=== PATIENT | female | born 1930 | race Caucasian/White ===

== ENCOUNTER → 2017-03-06 | Outpatient (CLI) | payer MEDICARE ==
[~2017-03-06] MED LIST: CALC500T36 PO; CENTTAB47 PO; FOSA70TA PO; LIPI10TA PO; VITATAB11 PO
[2017-03-06 12:16] LABS: MEAN CORPUSCULAR HEMOGLOBIN 33.4 pg (27.0-33.0); MEAN CORPUSCULAR HGB CONC 34.4 g/dl (32.0-36.5); MEAN CORPUSCULAR VOLUME 97.1 fl (80.0-96.0); RED CELL DISTRIBUTION WIDTH 12.5 % (11.5-14.5); WHITE BLOOD COUNT 7.1 K/mm3 (4.0-10.0)
[2017-03-06 12:22] LABS: INR 0.93
--- NOTE | 2017-03-06 12:44 | REP ---
REASON: Preoperative assessment. COMPARISON: 08/18/2014 Cardiomediastinal silhouette is unchanged. The heart is not enlarged. There is interstitial fibrotic change status quo. No acute patchy parenchymal opacities or pleural effusions have developed. There is no change in the osseous structures. IMPRESSION: Stable appearing chronic changes. Signed by Jeremiah Hair DO 03/06/2017 02:17 P
[2017-03-06 12:46] LABS: ALBUMIN 4.2 GM/DL (3.2-5.2); ALBUMIN/GLOBULIN RATIO 1.31 (1.00-1.93); ALKALINE PHOSPHATASE 103 U/L (45-117); ALT/SGPT 25 U/L (12-78); ANION GAP 7 MEQ/L (8-16); AST/SGOT 16 U/L (15-37); BILIRUBIN,TOTAL 0.4 MG/DL (0.2-1.0); BLOOD UREA NITROGEN 24 MG/DL (7-18); CALCIUM LEVEL 8.9 MG/DL (8.8-10.2); CARBON DIOXIDE LEVEL 26 MEQ/L (21-32); CHLORIDE LEVEL 106 MEQ/L (98-107); CREATININE FOR GFR 0.78 MG/DL (0.55-1.02); GLOMERULAR FILTRATION RATE > 60.0 (>32); GLUCOSE, FASTING 85 MG/DL (83-110); POTASSIUM SERUM 4.6 MEQ/L (3.5-5.1); SODIUM LEVEL 139 MEQ/L (136-145); TOTAL PROTEIN 7.4 GM/DL (6.4-8.2)
--- NOTE | 2017-03-07 00:43 | ECGEPIP ---
Stationary ECG Study [facility] Test Date: 2017-03-06 Pat Name: Lala CRUM Department: Room: - Gender: F Program Management Professional: SERVANDO : 1930 Requested By: Jostin Shaw Order Number: [id number] Reading MD: Blas Narvaez Measurements Intervals [place] Rate: 72 P: 73 NV: 167 QRS: -2 QRSD: 70 T: 29 QT: 347 QTc: 382 Interpretive Statements SINUS RHYTHM POSSIBLE LEFT ATRIAL ENLARGEMENT POSSIBLE ANTERIOR MYOCARDIAL INFARCTION, PROBABLY OLD VERSUS POOR r-WAVE PROGRESSION INFERIOR MYOCARDIAL INFARCTION, PROBABLY OLD LOW-VOLTAGE QRS COMPLEXES IN THE LIMB LEADS NO PRIOR TRACING IN THE SYSTEM Electronically Signed On 03-07-2017 0:43:21 EDT by Blas Narvaez
== END ==
LOC: M ADMPAT 10:19
PROVIDERS: ATTEND Orthopaedic Surgery
DX: Z01.818 Encounter for other preprocedural examination (principal); M16.12 Unilateral primary osteoarthritis, left hip; Z79.899 Other long term (current) drug therapy

== ENCOUNTER 2017-03-20 08:45 | Inpatient (IN) | payer MEDICARE ==
[2017-03-06 11:39] VITALS: BP 166/86
--- NOTE | 2017-03-13 13:24 | HPE ---
DATE OF ANTICIPATED ADMISSION: 03/20/2017 ATTENDING PHYSICIAN: Jostin Roa MD CHIEF COMPLAINT: Left hip pain and stiffness. HISTORY: The patient is a pleasant 86-year-old female presenting with progressively worsening left hip pain and stiffness. She has failed to improve with conservative measures, so she has elected for a left total hip arthroplasty with Dr. Roa. Pain continues with weightbearing activities and activities of daily living. Medical optimization pending with Dr. Chang and is not present for review today. CURRENT MEDICATIONS: - Mobic 15 mg daily ALLERGIES: No known drug allergies. CURRENT MEDICAL CONDITIONS: Osteoarthritis. SURGICAL HISTORY: section, right lower leg surgery. SOCIAL HISTORY: The patient has never smoked. Rare alcohol use. REVIEW OF SYSTEMS: The patient denies fevers, chills, nausea, vomiting, or diarrhea. She denies chest pain, shortness of breath, headache, or cough. No recent upper respiratory or urinary tract infection symptoms. The patient continues to have left hip pain with weightbearing activities and activities of daily living. EXAMINATION: A well nourished, well developed female, in no apparent distress. Neck supple without lymphadenopathy or jugular venous distention (JVD). Heart: Regular rate and rhythm. Lungs: Clear to auscultation bilaterally. Abdomen: Bowel sounds are present. Abdomen is soft and nontender to palpation. Musculoskeletal: The left hip revealed no gross abnormalities. Skin is intact. The patient does have limited extension, internal and external rotation at the hip. She does have normal strength of the left lower extremity. Hip irritability was elicited with range of motion. She does have tenderness to palpation along the groin. Her calf is soft, nontender to palpation, with no palpable cords noted. Distally, she is neurovascularly intact. VITAL SIGNS: Height 65 inches. Weight 148 pounds. Temperature 97.6. Blood pressure 156/84. Heart rate 88. Respirations 20. LABORATORY DATA: Chest x-ray: Stable-appearing chronic changes. Electrocardiogram (EKG): Sinus rhythm. Possible left atrial enlargement. Possible anterior myocardial infarction, probably old versus poor R wave progression. Inferior myocardial infarction, probably old. Low voltage QRS complexes in the limb leads. Urinalysis: Positive for 2+ leukocyte esterase, 4 WBCs, and 1+ bacteria. Urine culture positive for Escherichia (E.) coli. Nasal and sinus culture reveals normal marley. Comprehensive metabolic profile: Fasting glucose 85, BUN elevated at 24, creatinine for GFR 0.78. GFR greater than 60. Sodium 139, potassium 4.6, chloride 106, carbon dioxide 26, anion gap decreased at 7, calcium 8.9, AST 16, ALT 25, alkaline phosphatase 103, total bilirubin 0.4 , total protein 7.4, albumin 4.2, albumin globulin ratio 1.31. Complete blood count: WBC is 7.1, RBC is 4.57, hemoglobin 15.3, hematocrit 44.3 , platelets 245. Erythrocyte sedimentation rate 6. Prothrombin time 12.6, INR 0.93. ASSESSMENT/PLAN: 1. Symptomatic left hip osteoarthritis with x-rays notable for end-stage degenerative changes. The patient has elected for a left total hip arthroplasty with Dr. Roa. Medical optimization pending with Dr. Chang. 2. Urinary tract infection. Treated with Bactrim DS twice daily for 10 days. MTDD
[~2017-03-20] VITALS: Ht 165.1 cm; Wt 68.0 kg
[~2017-03-20 08:45] MED LIST changes: +**UNRESOLVED NON-FORMULARY MED ORDER XX SCH
[2017-03-20] MEDS ORDERED: CelecoXIB (CeleBREX) 100 MG CAP PO ONE ×2 (09:00→21:00)
[2017-03-20] MEDS ORDERED: LR 1,000 ML IV SCH ×2 (09:00→16:30)
[2017-03-20] MEDS ORDERED: PERCOCET 5MG/325MG TAB PO ONE (09:30)
[2017-03-20] MEDS ORDERED: ceFAZolin 1GM INJ (J0690) As Ordered ONE (10:22)
[2017-03-20] MEDS ORDERED: BUPIVACAINE/EPIN 0.25% 30 ML VIAL As Ordered ONE (10:22)
[2017-03-20] MEDS ORDERED: TRANEXAMIC ACID 100 MG/ML 10ML VIAL As Ordered ONE (10:23)
[2017-03-20] MEDS ORDERED: EPINEPHrine INJ 1 MG/ML 1ML AMP As Ordered ONE (10:24)
[2017-03-20] MEDS ORDERED: fentaNYL 100 MCG/2 ML INJECTION (J3010) As Ordered ONE (13:59)
[2017-03-20] MEDS ORDERED: MIDAZOLAM INJ 2 MG/2 ML VIAL (J2250) As Ordered ONE (13:59)
[2017-03-20] MEDS ORDERED: ONDANSETRON 4MG/2ML VIAL (J2405) As Ordered ONE (14:00)
[2017-03-20] MEDS ORDERED: ePHEDrine SULFATE 25 MG/5 ML(5MG/ML) SYRINGE As Ordered ONE ×2 (14:00→14:07)
[2017-03-20] MEDS ORDERED: LIDOCAINE 2% INJ 100 MG/5 ML SDV (FOR ANES.) As Ordered ONE (14:00)
[2017-03-20] MEDS ORDERED: PROPOFOL 200 MG/20 ML VIAL As Ordered ONE ×2 (14:00→15:11)
[2017-03-20] MEDS ORDERED: ACETAMINOPHEN TAB 650MG DOSE (2X325MG) PO PRN (16:15)
[2017-03-20] MEDS ORDERED: ONDANSETRON 4MG/2ML VIAL (J2405) IV PRN ×2 (16:15→16:30)
[2017-03-20] MEDS ORDERED: FLEET ENEMA PR PRN (16:30)
[2017-03-20] MEDS ORDERED: MORPHINE 2 MG/ML 1ML SYRINGE IV PRN (16:30)
[2017-03-20] MEDS ORDERED: PERCOCET 5MG/325MG TAB PO PRN (16:30)
[2017-03-20] MEDS ORDERED: CYCLOBENZAPRINE 5MG TABLET PO PRN (16:30)
[2017-03-20] MEDS ORDERED: fentaNYL 100 MCG/2 ML INJECTION (J3010) IV PRN (16:30)
[2017-03-20] MEDS ORDERED: HYDROmorphone HCL 1 MG/ML SYRINGE (J1170) IV PRN (16:30)
[2017-03-20] MEDS ORDERED: WARFARIN SOD 1 MG TAB PO ONE (17:00)
[2017-03-20] MEDS ORDERED: WARFARIN SOD 2.5 MG TAB PO ONE (17:00)
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
[2017-03-20 17:30] VITALS: BP 137/96
[2017-03-20] MEDS: PERCOCET 5MG/325MG TAB PO PRN (17:53)
[2017-03-20] MEDS: D5W/LR 1,000 ML IV SCH (17:54)
[2017-03-20 18:00] VITALS: BP 140/72
[2017-03-20 19:00] VITALS: BP 133/57
[2017-03-20 20:00] VITALS: BP 107/62
[2017-03-20 21:00] VITALS: BP 139/67
[2017-03-20] MEDS: ASCORBIC ACID 500 MG TAB PO SCH (21:41)
[2017-03-20 22:00] VITALS: BP 134/78
[2017-03-21] MEDS: RAMELTEON 8 MG TAB (ROZEREM) PO SCH ×2 (00:50→21:20)
[2017-03-21 02:00] VITALS: BP 128/83
[2017-03-21] MEDS: D5W/LR 1,000 ML IV SCH (03:22)
[2017-03-21] MEDS: PERCOCET 5MG/325MG TAB PO PRN ×4 (03:38→21:20)
[2017-03-21 06:00] VITALS: BP 124/57
[2017-03-21 06:55] LABS: INR 1.3; MEAN CORPUSCULAR HEMOGLOBIN 33.1 pg (27.0-33.0); MEAN CORPUSCULAR HGB CONC 34.2 g/dl (32.0-36.5); MEAN CORPUSCULAR VOLUME 96.8 fl (80.0-96.0); RED CELL DISTRIBUTION WIDTH 12.6 % (11.5-14.5); WHITE BLOOD COUNT 12.6 K/mm3 (4.0-10.0)
[2017-03-21 07:49] LABS: ANION GAP 9 MEQ/L (8-16); BLOOD UREA NITROGEN 21 MG/DL (7-18); CALCIUM LEVEL 8.2 MG/DL (8.8-10.2); CARBON DIOXIDE LEVEL 23 MEQ/L (21-32); CHLORIDE LEVEL 108 MEQ/L (98-107); CREATININE FOR GFR 0.75 MG/DL (0.55-1.02); GLOMERULAR FILTRATION RATE > 60.0 (>32); GLUCOSE, FASTING 129 MG/DL (83-110); MAGNESIUM LEVEL 1.9 MG/DL (1.8-2.4); POTASSIUM SERUM 4.5 MEQ/L (3.5-5.1); SODIUM LEVEL 140 MEQ/L (136-145)
[2017-03-21] MEDS: FLUTICASONE PROP 0.05% NASAL SPRAY 16 GM (FLONASE) SCH (09:00)
[2017-03-21] MEDS: MIRALAX *UNIT DOSE* 17GM PACKET PO SCH (09:00)
[2017-03-21 10:00] VITALS: BP 129/59
--- NOTE | 2017-03-21 10:29 | REP ---
Clinical: Status post arthroplasty. Technique: AP and cross-table lateral views. Findings: The patient is status post left hip replacement with normal positioning and appearance to the femoral and acetabular components. Overlying postsurgical changes appreciated. Impression: Satisfactory left hip replacement radiographs. Signed by Boom Tobar MD 03/21/2017 10:20 A
[2017-03-21] MEDS: SENOKOT S TAB PO SCH ×2 (10:39→21:21)
[2017-03-21] MEDS: ASCORBIC ACID 500 MG TAB PO SCH ×2 (10:41→21:21)
[2017-03-21] MEDS: MOM 30ML SUSPENSION UDC PO SCH (10:45)
[2017-03-21] MEDS ORDERED: SENN1TAB2 PO (11:35)
[2017-03-21 14:00] VITALS: BP 121/59
--- NOTE | 2017-03-21 14:11 | IPN ---
DATE: 03/21/2017 The patient seen and examined. No acute events overnight. Denies any chest pain, pressure or discomfort. Reporting left hip pain within tolerable limits. Denies any fever or chills. VITAL SIGNS: Temperature 97.7, pulse 89, respirations 18, blood pressure 129/59, pulse oximetry 94% on room air. LABORATORY: WBC 12.6, hemoglobin and hematocrit (H and H) 12.6 over 36.7, and platelets 164. Chemistries: Sodium 140, potassium 4.5, chloride 108, bicarbonate 23, BUN 21, creatinine 0.75. PHYSICAL EXAMINATION: GENERAL: Patient alert and oriented times three. No acute distress. HEENT: Normocephalic, atraumatic. PULMONARY: Bilateral clear. NECK: Supple. CARDIAC: Regular rate and rhythm. Normal S1, S2. ABDOMEN: Soft. Nontender. Positive bowel sounds. EXTREMITIES: No edema bilateral lower extremities. Able to move bilateral lower extremities. Surgical site clean, dry and intact. ASSESSMENT AND PLAN: This is an 86-year-old female patient with no significant past medical history other than osteoarthritis who is on Lipitor and lives alone at home admitted under the orthopedic service status post left hip replacement done by Dr. Roa. Medicine consulted for medical management. PROBLEMS: 1. Osteoarthritis. Anticoagulation, pain regimen, activity status and physical therapy as per Dr. Roa. The patient is on Coumadin for anticoagulation. Followup INR. Physical medicine and rehabilitation (PM and R) screening. 2. Dyslipidemia. Continue statin. 3. History of urinary tract infection (UTI). Currently asymptomatic. Will continue to follow. 4. Deep vein thrombosis (DVT) prophylaxis. As per primary team. On Coumadin. DISPOSITION: Pending PM and R and physical therapy.
--- NOTE | 2017-03-21 15:22 | RO ---
DATE OF PROCEDURE: 03/20/2017 PREOPERATIVE DIAGNOSIS: Left hip osteoarthritis. POSTOPERATIVE DIAGNOSIS: Left hip osteoarthritis. PROCEDURE PERFORMED: Left total hip replacement. SURGEON: Jostin Roa MD ASSEM[employer]: Helene Lopes PA-C ESTIMATED BLOOD LOSS: Less than 300 mL, replaced with crystalloid. COMPLICATIONS: None. INDICATIONS; Progressive discomfort and deformity of the left hip. The patient has elective for operative intervention. Consent reviewed in detail, including a leticia discussion of pathology involved, procedure proposed, alternatives, such as doing nothing, risks, including but not limited to pain, failure, infection, bleeding, blood loss, incomplete relief of symptoms need for additional surgery, dislocation, blood clots and other issues. The patient agreed to proceed with surgery. COMPONENTS USED: Include DePuy [place] system, size 8 femoral component, +5 neck length, 36 mm metal head, 52 mm acetabulum, 36 mm acetabular liner, [place] hole eliminator. OPERATIVE REPORT Identified in the holding area, site and side verified, brought to the operating room and spinal anesthesia was administered and she was positioned for exposure of the left hip in the lateral decubitus position for the modified Hardinge approach for the left hip. Next, once I and the drive tester were comfortable, she was sterilely prepped and draped in the usual fashion. Time-out was accomplished. Incision was outlined with a marking pen, infiltrated with 0.25% Marcaine with epinephrine, made with a 10 blade knife, developed down through skin and subcuticular tissues to the lateral fascia. I was standing on the patient's posterior, Ms. Lopes on the patient's anterior. Lateral fascia was opened sharply using Ambriz scissor and exposing the abductor mechanism, into the 2:00 o'clock position and the femoral neck and capsule were exposed. The capsule was released. Cuff of tissue was left on the greater trochanter at its anterior aspect for later repair. The abductor mechanism was released anteriorly, developed inferiorly releasing the proximal portion of the vastus lateralis. Next, once this was accomplished, the reflected head of the vastus was released at the acetabulum. The hip was dislocated with the physician lead recreation assistant, Ms. Lopes, applying external rotation and traction and I utilized the dislocation hook. Next, the hip was positioned in the bag. The proximal femur was exposed. The canal was opened using the canal opening reamer, followed by the canal finding reamer, followed by the lateralizing reamer. We then reamed through a size eight conical reamer. Next, tem plate was installed and the oscillating saw was utilized to make the femoral neck cut approximately one-half fingerbreadth from the lesser trochanter. Next, the box broach was utilized in the proximal cancellus bone. Next, broach from a size 3 through a size 8 was utilized. Size 8 fit appropriately as templated. Next, the hip was then we repositioned with the anterior and posterior retractors exposing the acetabulum. A large posterior, inferior osteophyte was appreciated as on the x-rays. Next, Bovie cautery was utilized to remove soft tissue from the acetabulum and the remove the acetabular labrum. Next, serial reaming was accomplished using the hemispherical reamers beginning with a size 46 and working through a size 51. We trialed for a size 52, which seemed to fit appropriately and securely with good rim fit. Next, the non trial acetabulum was then implanted using a targeting device and a mallet. Next, apex hole eliminator was installed after we verified the acetabulum. Acetabular component was in the floor of the acetabulum. Next, the non trial 36 mm neutral liner was installed using a nylon impactor. We verified the liner was secure. Next, attention was turned back to the femoral components. The trial size 8 femoral component was implanted and tamped into place. I then trialed a +1.5, followed by a +5 neck length high offset, normal off set. Normal off set fit appropriately with a +5 neck length. Next, the trial components were then removed and non trial stem was implanted. Next, non trial hip ball size 36 mm was installed and tamped into place and the hip was reduced. The hip was placed through range of motion to verify good alignment. Of note, prior to implanting the non trial stem, I did remove the posterior and inferior osteophytes using curette osteotome. Next, the hip was stable with external rotation. Next, irrigation was accomplished, as well as irrigation TXA solution and allowed to stand for 1 minute. Next, once this was accomplished, the capsule and medius tissues were reapproximated using interrupted stitch. The medius and abductor mechanisms were reapproximated greater trochanter with the cuff of tissue on the greater trochanter. Next, the lateral fascia was reapproximated with interrupted #1 stitch, as well as Stratafix running stitch. Next, we again irrigated. The Alvina's fascia was reapproximated with interrupted stitch, deep dermis with interrupted stitch. Next, Pernio dressing was applied. Next, once this was accomplished, the drapes were removed, pillow placed between the knees. The patient was then moved the hospital bed in good. Leg lengths were appreciated to be equal. Moved to the recovery room in good condition. Physician lead recreation assistant Moses was present and participated in the entirety of the case, as did Za. For further details, please refer to the medical record. MELCHOR
[2017-03-21] MEDS ORDERED: WARFARIN SOD 5 MG TAB PO ONE (17:00)
[2017-03-21 22:00] VITALS: BP 112/75
[2017-03-22 06:00] VITALS: BP 98/71
[2017-03-22 06:34] LABS: MEAN CORPUSCULAR HEMOGLOBIN 33.4 pg (27.0-33.0); MEAN CORPUSCULAR HGB CONC 34.1 g/dl (32.0-36.5); MEAN CORPUSCULAR VOLUME 97.8 fl (80.0-96.0); RED CELL DISTRIBUTION WIDTH 12.6 % (11.5-14.5); WHITE BLOOD COUNT 14.1 K/mm3 (4.0-10.0)
[2017-03-22 06:38] LABS: INR 2.48
[2017-03-22 06:41] LABS: ANION GAP 6 MEQ/L (8-16); BLOOD UREA NITROGEN 21 MG/DL (7-18); CARBON DIOXIDE LEVEL 24 MEQ/L (21-32); CHLORIDE LEVEL 106 MEQ/L (98-107); CREATININE FOR GFR 0.71 MG/DL (0.55-1.02); GLOMERULAR FILTRATION RATE > 60.0 (>32); GLUCOSE, FASTING 110 MG/DL (83-110); MAGNESIUM LEVEL 2.2 MG/DL (1.8-2.4); POTASSIUM SERUM 4.5 MEQ/L (3.5-5.1); SODIUM LEVEL 136 MEQ/L (136-145)
[2017-03-22] MEDS ORDERED: traMADol 50 MG TAB PO PRN (07:45)
[2017-03-22] MEDS ORDERED: PHYTONADIONE 1.25 MG 1/4 TAB PO ONE (08:00)
[2017-03-22] MEDS: MOM 30ML SUSPENSION UDC PO SCH (09:00)
[2017-03-22] MEDS: FLUTICASONE PROP 0.05% NASAL SPRAY 16 GM (FLONASE) SCH (09:00)
[2017-03-22] MEDS: MIRALAX *UNIT DOSE* 17GM PACKET PO SCH (09:00)
[2017-03-22] MEDS: SENOKOT S TAB PO SCH ×2 (09:06→21:27)
[2017-03-22] MEDS: ASCORBIC ACID 500 MG TAB PO SCH ×2 (09:06→21:27)
[2017-03-22] MEDS: traMADol 50 MG TAB PO PRN ×2 (09:08→18:37)
[2017-03-22 14:00] VITALS: BP 124/58
--- NOTE | 2017-03-22 15:57 | IPN ---
DATE: 03/22/2017 Patient seen and examined. No acute events overnight. Currently comfortable. No shortness of breath. No chest pain, pressure, or discomfort. Reported pain to be tolerable. Reported that she gets a little bit drowsy with pain medication and will try to avoid it as much as possible. VITAL SIGNS: Temperature 97.9, pulse 80, respirations 18, blood pressure 90/71, pulse oximetry 98% on room air. LABORATORY DATA: WBC 14, hemoglobin and hematocrit 11.5/33.8, platelets 174. Chemistry: Sodium 136, potassium 4.5, chloride 106, bicarbonate 24, BUN 21, creatinine 0.71. PHYSICAL EXAMINATION: GENERAL: Patient alert and oriented times three in no acute distress. HEENT: Normocephalic, atraumatic. PULMONARY: Bilaterally clear to auscultation. CARDIAC: Regular rate and rhythm. Normal S1, S2. ABDOMEN: Soft and nontender. Positive bowel sounds. EXTREMITIES: No edema, bilateral lower extremities. ASSESSMENT AND PLAN: This is an 86-year-old female patient with no significant past medical history other than osteoarthritis. Is on Lipitor. Lives alone at home. Admitted under orthopedic service status post left hip replacement by Dr. Roa. Medicine consulted for medication management. 1. Osteoarthritis, status post left hip arthroplasty. Anticoagulation, pain regimen, activity status, physical therapy as per orthopedics. Patient on Coumadin for anticoagulation. Followup INR. Coumadin on hold today given abrupt rise of INR. Physical medicine and rehabilitation (PM and R) screening. 2. Dyslipidemia. Continue statin. 3. History of urinary tract infection (UTI). Continue to monitor. Asymptomatic at this point. 4. Deep vein thrombosis (DVT) prophylaxis. Coumadin as per primary team. DISPOSITION: Pending PM and R and physical therapy.
[2017-03-22] MEDS: RAMELTEON 8 MG TAB (ROZEREM) PO SCH (21:27)
[2017-03-22 22:00] VITALS: BP 124/58
[2017-03-23] MEDS: traMADol 50 MG TAB PO PRN ×2 (05:42→18:39)
[2017-03-23 06:00] VITALS: BP 117/53
[2017-03-23 06:50] LABS: MEAN CORPUSCULAR HEMOGLOBIN 33.4 pg (27.0-33.0); MEAN CORPUSCULAR HGB CONC 34.3 g/dl (32.0-36.5); MEAN CORPUSCULAR VOLUME 97.3 fl (80.0-96.0); RED CELL DISTRIBUTION WIDTH 12.7 % (11.5-14.5); WHITE BLOOD COUNT 11.6 K/mm3 (4.0-10.0)
[2017-03-23 06:55] LABS: INR 1.26
[2017-03-23 07:03] LABS: ANION GAP 6 MEQ/L (8-16); BLOOD UREA NITROGEN 22 MG/DL (7-18); CALCIUM LEVEL 8.2 MG/DL (8.8-10.2); CARBON DIOXIDE LEVEL 25 MEQ/L (21-32); CHLORIDE LEVEL 105 MEQ/L (98-107); GLOMERULAR FILTRATION RATE > 60.0 (>32); GLUCOSE, FASTING 122 MG/DL (83-110); MAGNESIUM LEVEL 2.3 MG/DL (1.8-2.4); POTASSIUM SERUM 4.2 MEQ/L (3.5-5.1); SODIUM LEVEL 136 MEQ/L (136-145)
[2017-03-23] MEDS: FLUTICASONE PROP 0.05% NASAL SPRAY 16 GM (FLONASE) SCH (10:12)
[2017-03-23] MEDS: ASCORBIC ACID 500 MG TAB PO SCH ×2 (10:12→20:25)
[2017-03-23] MEDS: MOM 30ML SUSPENSION UDC PO SCH (10:12)
[2017-03-23] MEDS: MIRALAX *UNIT DOSE* 17GM PACKET PO SCH (10:12)
[2017-03-23] MEDS: SENOKOT S TAB PO SCH ×2 (10:12→20:25)
[2017-03-23] MEDS ORDERED: MAGNESIUM CITRATE 300 ML BTL PO ONE (10:15)
--- NOTE | 2017-03-23 10:32 | IPN ---
DATE OF SERVICE: 03/23/2017 The patient seen and examined. No acute events overnight. Denies any chest pain, pressure, or discomfort, fevers, or chills. Feeling comfortable. VITAL SIGNS: Temperature 99.1, pulse 95, respiration 17, blood pressure 117/53, pulse oximetry 91% on room air. LABORATORY: WBC 11.6, hemoglobin and hematocrit 11.1/32.3, platelets 182. Chemistry: Sodium 136, potassium 4.2, chloride 105, bicarbonate 25, BUN 22, creatinine 0.7. PHYSICAL EXAMINATION: The patient alert and oriented times three, in no acute distress. HEENT: Normocephalic, atraumatic. PULMONARY: Bilaterally clear to auscultation. CARDIAC: Regular rate and rhythm. Normal S1, S2. ABDOMEN: Soft and nontender. Positive bowel sounds. EXTREMITIES: No edema, bilateral lower extremities. ASSESSMENT AND PLAN: This is an 86-year-old female patient with no significant past medical history other than osteoarthritis. Is on Lipitor. Lives alone at home. Admitted under orthopedic service, status post left hip replacement by Dr. Roa. Medicine consulted for medical management. PROBLEMS: 1. Osteoarthritis, status post left hip arthroplasty. Anticoagulation, pain regimen, activity status, physical therapy as per orthopedics. The patient on Coumadin for anticoagulation. Followup international normalized ratio (INR). Coumadin dosing, physical medicine and rehabilitation (PM and R) screening. 2. Dyslipidemia. Continue statin. 3. History of urinary tract infection (UTI). Continue to monitor. Asymptomatic at this time. 4. Constipation. Bowel regimen as prescribed. 5. Deep vein thrombosis (DVT) prophylaxis. The patient on Coumadin as per orthopedic team. [facility]
[2017-03-23 14:00] VITALS: BP 109/55
[2017-03-23] MEDS ORDERED: WARFARIN SOD 2.5 MG TAB PO ONE (17:00)
[2017-03-23] MEDS: RAMELTEON 8 MG TAB (ROZEREM) PO SCH (20:25)
[2017-03-23 22:00] VITALS: BP 110/59
[2017-03-24 06:00] VITALS: BP 125/64
[2017-03-24 06:28] LABS: MEAN CORPUSCULAR HEMOGLOBIN 34.4 pg (27.0-33.0); MEAN CORPUSCULAR HGB CONC 34.9 g/dl (32.0-36.5); MEAN CORPUSCULAR VOLUME 98.7 fl (80.0-96.0); RED CELL DISTRIBUTION WIDTH 12.5 % (11.5-14.5); WHITE BLOOD COUNT 8.4 K/mm3 (4.0-10.0)
[2017-03-24 06:34] LABS: INR 1.24
[2017-03-24 06:49] LABS: ANION GAP 6 MEQ/L (8-16); BLOOD UREA NITROGEN 20 MG/DL (7-18); CALCIUM LEVEL 8.1 MG/DL (8.8-10.2); CARBON DIOXIDE LEVEL 24 MEQ/L (21-32); CHLORIDE LEVEL 105 MEQ/L (98-107); CREATININE FOR GFR 0.62 MG/DL (0.55-1.02); GLOMERULAR FILTRATION RATE > 60.0 (>32); GLUCOSE, FASTING 110 MG/DL (83-110); MAGNESIUM LEVEL 2.5 MG/DL (1.8-2.4); POTASSIUM SERUM 4.4 MEQ/L (3.5-5.1); SODIUM LEVEL 135 MEQ/L (136-145)
[2017-03-24] MEDS ORDERED: TRAM50TA2 PO (07:30)
[2017-03-24] MEDS: ASCORBIC ACID 500 MG TAB PO SCH ×2 (08:49→21:19)
[2017-03-24] MEDS: MOM 30ML SUSPENSION UDC PO SCH (08:49)
[2017-03-24] MEDS: MIRALAX *UNIT DOSE* 17GM PACKET PO SCH (08:49)
[2017-03-24] MEDS: SENOKOT S TAB PO SCH ×2 (08:49→21:19)
[2017-03-24] MEDS: traMADol 50 MG TAB PO PRN ×3 (08:50→21:20)
[2017-03-24] MEDS: FLUTICASONE PROP 0.05% NASAL SPRAY 16 GM (FLONASE) SCH (08:50)
[2017-03-24 14:00] VITALS: BP 109/57
[2017-03-24] MEDS ORDERED: WARFARIN SOD 3 MG TAB PO ONE (17:00)
--- NOTE | 2017-03-24 17:38 | IPN ---
DATE: 03/24/2017 Patient seen and examined. No acute events overnight. Denies any chest pain, pressure, discomfort, fevers or chills, currently comfortable, participating with physical therapy, tolerating a diet and also making bowel movement. VITAL SIGNS: Temperature 98.3, pulse 86, respirations 18, blood pressure 109/57, pulse oximetry 94% on room air. LABORATORY DATA: WBC 8.4, hemoglobin and hematocrit 10.7 over 30.6, platelets 223. Chemistry: Sodium 135, potassium 4.4, chloride 105, bicarbonate 24, BUN 20 PHYSICAL EXAMINATION: GENERAL: Patient alert and oriented times three, in no acute distress. HEENT: Normocephalic, atraumatic. PULMONARY: Bilaterally clear to auscultation. CARDIAC: Regular rate and rhythm. Normal S1, S2. ABDOMEN: Soft, nontender, positive bowel sounds. EXTREMITIES: No edema bilateral lower extremities. ASSESSMENT AND PLAN: This is an 86-year-old female patient with no significant underlying medical history other than osteoarthritis, on Lipitor, lives alone at home, admitted under orthopedic service, status post left hip replacement by Dr. Roa. Medicine consulted for medical management. Problems: 1. Osteoarthritis, status post left total hip arthroplasty. Anticoagulation, pain regimen, activity status, physical therapy as per orthopedics. Patient on Coumadin for deep vein thrombosis (DVT) prophylaxis, followup international normalized ratio (INR), physical therapy, denied by physical medicine and rehabilitation (PM and R). 2. Dyslipidemia. Continue statin. 3. History of urinary tract infection (UTI). Continue to monitor. 4. Constipation. Bowel regimen was given. 5. Deep vein thrombosis (DVT) prophylaxis. Patient on Coumadin as per orthopedics. DISPOSITION: Pending rehabilitation and physical therapy. MTDD
[2017-03-24] MEDS: RAMELTEON 8 MG TAB (ROZEREM) PO SCH (21:19)
[2017-03-24 22:00] VITALS: BP 110/56
[2017-03-25] MEDS: traMADol 50 MG TAB PO PRN ×4 (03:56→20:20)
[2017-03-25 06:00] VITALS: BP 114/57
[2017-03-25 06:43] LABS: MEAN CORPUSCULAR HGB CONC 34.3 g/dl (32.0-36.5); MEAN CORPUSCULAR VOLUME 99.2 fl (80.0-96.0); RED CELL DISTRIBUTION WIDTH 12.4 % (11.5-14.5); WHITE BLOOD COUNT 7.8 K/mm3 (4.0-10.0)
[2017-03-25 06:45] LABS: INR 1.28
[2017-03-25 07:03] LABS: ANION GAP 5 MEQ/L (8-16); BLOOD UREA NITROGEN 20 MG/DL (7-18); CALCIUM LEVEL 8.3 MG/DL (8.8-10.2); CARBON DIOXIDE LEVEL 27 MEQ/L (21-32); CHLORIDE LEVEL 106 MEQ/L (98-107); GLOMERULAR FILTRATION RATE > 60.0 (>32); GLUCOSE, FASTING 111 MG/DL (83-110); MAGNESIUM LEVEL 2.5 MG/DL (1.8-2.4); POTASSIUM SERUM 4.7 MEQ/L (3.5-5.1); SODIUM LEVEL 138 MEQ/L (136-145)
[2017-03-25] MEDS: ASCORBIC ACID 500 MG TAB PO SCH ×2 (08:59→20:20)
[2017-03-25] MEDS: SENOKOT S TAB PO SCH ×2 (09:00→20:20)
[2017-03-25] MEDS: MIRALAX *UNIT DOSE* 17GM PACKET PO SCH (09:00)
[2017-03-25] MEDS: MOM 30ML SUSPENSION UDC PO SCH (09:00)
[2017-03-25] MEDS: FLUTICASONE PROP 0.05% NASAL SPRAY 16 GM (FLONASE) SCH (09:15)
[2017-03-25 14:00] VITALS: BP 118/62
[2017-03-25] MEDS ORDERED: WARFARIN SOD 4 MG TAB PO ONE (17:00)
[2017-03-25] MEDS: RAMELTEON 8 MG TAB (ROZEREM) PO SCH (20:19)
[2017-03-25] MEDS ORDERED: ATORVASTATIN 10 MG TAB PO SCH (21:00)
[2017-03-25 22:00] VITALS: BP 126/58
[2017-03-26] MEDS: traMADol 50 MG TAB PO PRN ×2 (05:55→10:02)
[2017-03-26 06:00] VITALS: BP_SYST 100; BP_SYST 138; BP_DIAS 58; BP_DIAS 70
[2017-03-26 06:56] LABS: INR 1.47
[2017-03-26] MEDS: FLUTICASONE PROP 0.05% NASAL SPRAY 16 GM (FLONASE) SCH (08:40)
[2017-03-26] MEDS: MOM 30ML SUSPENSION UDC PO SCH (08:40)
[2017-03-26] MEDS: SENOKOT S TAB PO SCH (08:40)
[2017-03-26] MEDS: ASCORBIC ACID 500 MG TAB PO SCH (08:40)
[2017-03-26] MEDS: MIRALAX *UNIT DOSE* 17GM PACKET PO SCH (08:40)
[2017-03-26] MEDS ORDERED: TRIAMCINOLONE ACET 0.1% CREAM 80 GM TOP SCH (09:00)
[2017-03-26] MEDS ORDERED: WARFARIN SOD 3 MG TAB PO ONE (17:00)
--- NOTE | 2017-04-01 14:48 | DSES ---
DATE OF ADMISSION: 03/20/2017 DATE OF DISCHARGE: 03/26/2017 ATTENDING PHYSICIAN: Dr. Jostin Roa ADMITTING DIAGNOSIS: Left hip osteoarthritis. OTHER DIAGNOSES: 1. Osteoarthritis. 2. Hyperlipidemia. DISCHARGE DIAGNOSIS: Left hip osteoarthritis, status post left total hip arthroplasty. HISTORY OF PRESENT ILLNESS: The patient is a pleasant 86-year-old female with progressively worsening left hip pain and stiffness. She failed to improve with conservative measures, so she consented for an elective left total hip arthroplasty with Dr. Roa. Operation performed was left total hip arthroplasty. HOSPITALIZATION COURSE: The patient underwent a left total hip arthroplasty under spinal anesthesia, which was uneventful. Her hospital course was without complication, and she was up with physical therapy (PT) per their protocol, weight bearing as tolerated on the left lower extremity. She was stable upon discharge and discharged with oral pain medications. She will resume her preoperative medications and diet. The patient agrees to use her thromboembolic deterrent stockings and continue to take her Coumadin for 30 days postoperatively to prevent deep vein thrombosis (DVT). She will followup in our office in 12 to 14 days for a wound check. The patient agrees to contact our clinic sooner if there is any increase in pain, drainage, redness, warmth, numbness and tingling, fever greater than 101 degrees of any other concerns. Please see medical record for additional details. NICKYD
== END 2017-03-26 11:20 | DRG 470 ==
LOC: M OR 08:45 → M MS5PR 17:10
PROVIDERS: ADMIT Orthopaedic Surgery; ATTEND Orthopaedic Surgery
PROC: 0SRB02Z Replacement of Left Hip Joint with Metal on Polyethylene Synthetic Substitute, Open Approach (ICD-10-PCS; principal; 2017-03-20 11:00)
DX: M16.12 Unilateral primary osteoarthritis, left hip (principal); Z79.899 Other long term (current) drug therapy; Z87.891 Personal history of nicotine dependence; E78.5 Hyperlipidemia, unspecified; K59.00 Constipation, unspecified

== ENCOUNTER → 2017-04-01 | Outpatient (REF) ==
[~2017-04-01] MED LIST changes: -**UNRESOLVED NON-FORMULARY MED ORDER XX SCH; +SENN1TAB2 PO; +TRAM50TA2 PO
[2017-04-01 09:25] LABS: MEAN CORPUSCULAR HEMOGLOBIN 33.3 pg (27.0-33.0); MEAN CORPUSCULAR HGB CONC 33.7 g/dl (32.0-36.5); MEAN CORPUSCULAR VOLUME 98.9 fl (80.0-96.0); RED CELL DISTRIBUTION WIDTH 12.5 % (11.5-14.5); WHITE BLOOD COUNT 11.1 K/mm3 (4.0-10.0)
[2017-04-01 10:00] LABS: ANION GAP 8 MEQ/L (8-16); BLOOD UREA NITROGEN 16 MG/DL (7-18); CARBON DIOXIDE LEVEL 28 MEQ/L (21-32); CHLORIDE LEVEL 105 MEQ/L (98-107); CREATININE FOR GFR 0.78 MG/DL (0.55-1.02); GLOMERULAR FILTRATION RATE > 60.0 (>32); GLUCOSE, FASTING 109 MG/DL (83-110); POTASSIUM SERUM 4.5 MEQ/L (3.5-5.1); SODIUM LEVEL 141 MEQ/L (136-145)
== END ==
PROVIDERS: ATTEND Family Medicine
DX: Z96.642 Presence of left artificial hip joint (principal); Z79.899 Other long term (current) drug therapy

== ENCOUNTER → 2017-07-04 | Outpatient (REF) | payer MEDICARE ==
[2017-07-04 12:05] LABS: ALBUMIN 3.9 GM/DL (3.2-5.2); ALBUMIN/GLOBULIN RATIO 1.08 (1.00-1.93); ALKALINE PHOSPHATASE 133 U/L (45-117); ALT/SGPT 24 U/L (12-78); ANION GAP 9 MEQ/L (8-16); AST/SGOT 19 U/L (15-37); BILIRUBIN,TOTAL 0.4 MG/DL (0.2-1.0); BLOOD UREA NITROGEN 21 MG/DL (7-18); CALCIUM LEVEL 8.9 MG/DL (8.8-10.2); CARBON DIOXIDE LEVEL 26 MEQ/L (21-32); CHLORIDE LEVEL 107 MEQ/L (98-107); CHOLESTEROL LEVEL 206 MG/DL (<200); CREATININE FOR GFR 0.78 MG/DL (0.55-1.02); GLOMERULAR FILTRATION RATE > 60.0 (>32); GLUCOSE, FASTING 83 MG/DL (83-110); POTASSIUM SERUM 4.6 MEQ/L (3.5-5.1); SODIUM LEVEL 142 MEQ/L (136-145); TOTAL PROTEIN 7.5 GM/DL (6.4-8.2); TRIGLYCERIDES LEVEL 157 MG/DL (<150)
== END ==
LOC: M SFHCPLAZ 08:10
PROVIDERS: ATTEND Internal Medicine
DX: Z00.00 Encounter for general adult medical examination without abnormal findings (principal); E78.00 Pure hypercholesterolemia, unspecified

== ENCOUNTER → 2017-12-15 | Outpatient (REF) | payer MEDICARE ==
[2017-12-15 11:36] LABS: MEAN CORPUSCULAR HEMOGLOBIN 31.6 pg (27.0-33.0); MEAN CORPUSCULAR HGB CONC 34.1 g/dl (32.0-36.5); MEAN CORPUSCULAR VOLUME 92.6 fl (80.0-96.0); PLATELET COUNT, AUTOMATED 228 10^3/uL (150-450); RED BLOOD COUNT 4.75 10^6/uL (4.00-5.40)
[2017-12-15 12:19] LABS: TOTAL 25(OH) VITAMIN D 28.2 NG/ML (30.0-100.0)
[2017-12-15 12:33] LABS: ALBUMIN 3.7 GM/DL (3.2-5.2); ALBUMIN/GLOBULIN RATIO 1.12 (1.00-1.93); ALKALINE PHOSPHATASE 111 U/L (45-117); ALT/SGPT 19 U/L (12-78); ANION GAP 7 MEQ/L (8-16); AST/SGOT 15 U/L (7-37); BILIRUBIN,TOTAL 0.5 MG/DL (0.2-1.0); BLOOD UREA NITROGEN 19 MG/DL (7-18); CALCIUM LEVEL 8.6 MG/DL (8.8-10.2); CARBON DIOXIDE LEVEL 23 MEQ/L (21-32); CHLORIDE LEVEL 113 MEQ/L (98-107); CHOLESTEROL LEVEL 186 MG/DL (<200); CHOLESTEROL RISK RATIO 3.263 (<5); CREATININE FOR GFR 0.71 MG/DL (0.55-1.30); GLOMERULAR FILTRATION RATE > 60.0 (>32); GLUCOSE, FASTING 100 MG/DL (70-100); HDL CHOLESTEROL 57 MG/DL (>40); LDL CHOLESTEROL 106.4 MG/DL (<100); NON-HDL-C 129 MG/DL; POTASSIUM SERUM 4.7 MEQ/L (3.5-5.1); SODIUM LEVEL 143 MEQ/L (136-145); TRIGLYCERIDES LEVEL 113 MG/DL (<150)
== END ==
LOC: M SFHCPLAZ 09:53
DX: K22.9 Disease of esophagus, unspecified (principal); E78.00 Pure hypercholesterolemia, unspecified; M81.0 Age-related osteoporosis without current pathological fracture
CPT/HCPCS: 80053

== ENCOUNTER → 2018-07-03 | Outpatient (REF) | payer MEDICARE ==
[2018-07-03 13:31] LABS: ALBUMIN 4.2 GM/DL (3.2-5.2); ALBUMIN/GLOBULIN RATIO 1.35 (1.00-1.93); ALKALINE PHOSPHATASE 106 U/L (45-117); ALT/SGPT 27 U/L (12-78); ANION GAP 10 MEQ/L (8-16); AST/SGOT 27 U/L (7-37); BILIRUBIN,TOTAL 0.6 MG/DL (0.2-1.0); BLOOD UREA NITROGEN 23 MG/DL (7-18); CALCIUM LEVEL 9.2 MG/DL (8.8-10.2); CARBON DIOXIDE LEVEL 22 MEQ/L (21-32); CHLORIDE LEVEL 111 MEQ/L (98-107); CREATININE FOR GFR 0.79 MG/DL (0.55-1.30); GLOMERULAR FILTRATION RATE > 60.0 (>32); GLUCOSE, FASTING 95 MG/DL (70-100); POTASSIUM SERUM 5.1 MEQ/L (3.5-5.1); SODIUM LEVEL 143 MEQ/L (136-145); TOTAL PROTEIN 7.3 GM/DL (6.4-8.2)
== END ==
LOC: M SFHCPLAZ 09:04
DX: G47.00 Insomnia, unspecified (principal); Z79.899 Other long term (current) drug therapy
CPT/HCPCS: 84443

== ENCOUNTER → 2019-01-06 | Outpatient (REF) | payer MEDICARE ==
[~2019-01-06] MED LIST changes: +CALC12504 PO; -CALC500T36 PO; -SENN1TAB2 PO; +SENN1TAB40 PO
[2019-01-06 10:43] LABS: HEMATOCRIT 45.1 % (36.0-47.0); HEMOGLOBIN 15.3 g/dl (12.0-15.5); MEAN CORPUSCULAR HEMOGLOBIN 32.7 pg (27.0-33.0); MEAN CORPUSCULAR HGB CONC 33.9 g/dl (32.0-36.5); MEAN CORPUSCULAR VOLUME 96.4 fl (80.0-96.0); PLATELET COUNT, AUTOMATED 224 10^3/uL (150-450); RED BLOOD COUNT 4.68 10^6/uL (4.00-5.40); WHITE BLOOD COUNT 7.8 10^3/uL (4.0-10.0)
[2019-01-06 10:49] LABS: BLOOD UREA NITROGEN 25 MG/DL (7-18); CARBON DIOXIDE LEVEL 24 MEQ/L (21-32); CHLORIDE LEVEL 110 MEQ/L (98-107); CREATININE FOR GFR 0.93 MG/DL (0.55-1.30); GLOMERULAR FILTRATION RATE > 60.0 (>32); GLUCOSE, FASTING 101 MG/DL (70-100); POTASSIUM SERUM 4.4 MEQ/L (3.5-5.1); SODIUM LEVEL 140 MEQ/L (136-145)
[2019-01-06 10:50] LABS: ALBUMIN 3.9 GM/DL (3.2-5.2); ALT/SGPT 25 U/L (12-78); BILIRUBIN,TOTAL 0.5 MG/DL (0.2-1.0); CALCIUM LEVEL 8.7 MG/DL (8.8-10.2); CHOLESTEROL LEVEL 203 MG/DL (<200); CHOLESTEROL RISK RATIO 3.274 (<5); HDL CHOLESTEROL 62 MG/DL (>40); LDL CHOLESTEROL 113 MG/DL (<100); NON-HDL-C 141 MG/DL; TOTAL PROTEIN 7.2 GM/DL (6.4-8.2); TRIGLYCERIDES LEVEL 139 MG/DL (<150)
[2019-01-06 10:57] LABS: TOTAL 25(OH) VITAMIN D 58.2 NG/ML (30.0-100.0)
== END ==
LOC: M SFHCPLAZ 08:28
PROVIDERS: ATTEND Internal Medicine
DX: Z79.899 Other long term (current) drug therapy (principal); E78.00 Pure hypercholesterolemia, unspecified; M81.0 Age-related osteoporosis without current pathological fracture

== ENCOUNTER → 2019-04-12 | Outpatient (CLI) | payer MEDICARE ==
[~2019-04-12] MED LIST changes: -CALC12504 PO; +CALC500T61 PO
--- NOTE | 2019-04-12 14:25 | REP ---
Clinical: Cough and chest pain. Technique: PA and lateral. Comparison: 03/06/2017. Findings: Increased interstitial markings suggesting interstitial edema along with bibasilar infiltrates and small pleural effusions (left greater than right). Cardiac silhouette is stable/normal. Skeletal structures demonstrate osteopenia and degenerative change. Impression: Findings described above most compatible with early interstitial edema including bibasilar atelectasis and small pleural effusions (left greater than right). Electronically Signed by Boom Tobar MD 04/12/2019 02:16 P
== END ==
LOC: M SMT 14:03
PROVIDERS: ATTEND Physician Assistant Medical
DX: R91.8 Other nonspecific abnormal finding of lung field (principal); M85.88 Other specified disorders of bone density and structure, other site; J06.9 Acute upper respiratory infection, unspecified

== ENCOUNTER → 2019-04-19 | Outpatient (REF) | payer MEDICARE ==
[2019-04-19 14:02] LABS: ALBUMIN 3.8 GM/DL (3.2-5.2); BILIRUBIN,TOTAL 0.6 MG/DL (0.2-1.0); CALCIUM LEVEL 9.9 MG/DL (8.8-10.2); CREATININE FOR GFR 0.96 MG/DL (0.55-1.30); GLOMERULAR FILTRATION RATE 58.4 (>32); POTASSIUM SERUM 4.4 MEQ/L (3.5-5.1); TOTAL PROTEIN 7.3 GM/DL (6.4-8.2)
== END ==
LOC: M SFHCPLAZ 09:15
PROVIDERS: ATTEND Physician Assistant Medical
DX: J81.1 Chronic pulmonary edema (principal)

== ENCOUNTER → 2019-06-22 | Outpatient (REF) | payer MEDICARE ==
[~2019-06-22] MED LIST changes: +SENN-53 PO; -SENN1TAB40 PO
[2019-06-22 12:52] LABS: ALBUMIN 3.8 GM/DL (3.2-5.2); ALT/SGPT 27 U/L (12-78); BILIRUBIN,TOTAL 0.4 MG/DL (0.2-1.0); BLOOD UREA NITROGEN 19 MG/DL (7-18); CALCIUM LEVEL 8.9 MG/DL (8.8-10.2); CARBON DIOXIDE LEVEL 24 MEQ/L (21-32); CHLORIDE LEVEL 107 MEQ/L (98-107); CHOLESTEROL LEVEL 192 MG/DL (<200); CREATININE FOR GFR 0.92 MG/DL (0.55-1.30); GLOMERULAR FILTRATION RATE > 60.0 (>32); GLUCOSE, FASTING 83 MG/DL (70-100); HDL CHOLESTEROL 50 MG/DL (>40); LDL CHOLESTEROL 92 MG/DL (<100); NON-HDL-C 142 MG/DL; POTASSIUM SERUM 4.5 MEQ/L (3.5-5.1); SODIUM LEVEL 141 MEQ/L (136-145); TOTAL PROTEIN 7.2 GM/DL (6.4-8.2); TRIGLYCERIDES LEVEL 251 MG/DL (<150)
== END ==
LOC: M SFHCPLAZ 10:12
PROVIDERS: ATTEND Internal Medicine
DX: E78.00 Pure hypercholesterolemia, unspecified (principal); G47.00 Insomnia, unspecified
CPT/HCPCS: 36415; 80053; 80061; 84443; G0463

== ENCOUNTER → 2019-07-13 | Outpatient (CLI) | payer MEDICARE ==
--- NOTE | 2019-07-13 15:35 | REP ---
Clinical: Pleural effusion. Technique: PA and lateral. Comparison: 04/12/2019. Findings: Mediastinum and cardiac silhouette are stable. Lung mcnamara demonstrate chronic interstitial changes. Blunting to the left costophrenic angle cannot exclude small residual effusion versus chronic changes. No pneumothorax. Skeletal structures demonstrate osteopenia and degenerative changes. Impression: Diffuse chronic-appearing changes. Cannot exclude small left effusion. Electronically Signed by Boom Tobar MD 07/13/2019 03:27 P
== END ==
LOC: M ADAMS 15:08
PROVIDERS: ATTEND Nurse Practitioner Adult Health
DX: J90 Pleural effusion, not elsewhere classified (principal)
CPT/HCPCS: 71046; G0463

== ENCOUNTER → 2019-08-05 | Outpatient (CLI) | payer MEDICARE ==
--- NOTE | 2019-08-05 11:08 | REP ---
CT chest without contrast: History: Shortness of breath. Comparison chest x-ray July 13, 2019. There is no comparison chest CT study. CT findings: There is a moderate left pleural effusion, clearly increased substantially in size from the July 13, 2019 prior chest x-ray. There is a tiny sliver of right pleural fluid. An azygos lobe is noted incidentally on the right. There is discoid atelectasis in the lingular segment of the left upper lobe and there are compressive atelectatic changes in the left lower lobe associated with the pleural effusion. Interstitial markings are increased consistent with some degree of interstitial edema. There is extensive vascular calcification including coronary artery vascular calcification. There is a tiny accessory splenule. No mediastinal mass or adenopathy is observed. Heart is somewhat enlarged. Cardiothoracic ratio is 52.8%. Impression: Moderate left pleural effusion, increased considerably from July 13, 2019 with compressive atelectasis left lower and upper lobe. Cardiomegaly. Mild interstitial edema pattern bilaterally in the upper lobes. Electronically Signed by Fausto Herrera MD 08/05/2019 11:34 A
== END ==
LOC: M RAD 09:02
PROVIDERS: ATTEND Internal Medicine Pulmonary Disease
DX: J90 Pleural effusion, not elsewhere classified (principal); J84.9 Interstitial pulmonary disease, unspecified; I51.7 Cardiomegaly

== ENCOUNTER → 2019-08-05 | Outpatient (CLI) | payer MEDICARE, OTHER ==
--- NOTE | 2019-08-06 19:43 | ECHO ---
DATE OF PROCEDURE: 08/05/2019 Date of : 1930 Age: 89 Gender: Female Height: 67 inches Weight: 145 pounds Body surface area: 1.76 meters squared Outpatient. REFERRING PHYSICIAN: Dr. Javi Chirinos INDICATION: Shortness of breath. MEASUREMENTS: 2D Measurements: RV: 3.6 cm LV: 4.3 cm Septum: 1.0 cm Posterior wall: 0.9 cm Aortic root: 2.6 cm LA: 3.3 cm LVEF: 65% Doppler Measurements: AV: 1.7 meters per second LVOT: 0.89 meters per second LVOT diameter: 2.0 cm MV-E: 89, A: 135, EA ratio: 0.7 Early mitral deceleration time: 271 milliseconds E prime medial: 6.5, A prime medial: 8.8, E prime lateral: 6.5. Average E/E prime ratio: 13.7 Pulmonary capillary wedge pressure: 18.9 PV: 0.9 meters per second Pulmonary artery acceleration time: 95 milliseconds RVSP: 44 mmHg IVC: 2.1 cm COMMENTS: Normal sinus rhythm without intraventricular conduction disturbance. Technically challenging study in light of the patient's body habitus but diagnostically useful information was still obtained. M-mode and two-dimensional echocardiography was performed with pulsed, continuous wave, color flow and tissue Doppler studies. Normal left ventricular size, wall thickness and wall motion. Normal left atrial size with Doppler evidence of grade 1 LV diastolic dysfunction and mildly elevated estimated mean left atrial pressure. Normal right heart chamber sizes and motion with mild-moderate pulmonary hypertension. Inferior vena cava (IVC) size was slightly dilated with reduced respiratory collapse in keeping with an elevated central venous pressure. Mild aortic valvular sclerosis without functional abnormality. Mild-moderate mitral annular calcification without LV inflow tract obstruction with mild mitral insufficiency. Normal appearing tricuspid valve with very mild insufficiency. No apparent intracardiac mass or pericardial effusion. Normal aortic root diameters.
== END ==
LOC: M CARPUL 09:31
PROVIDERS: ATTEND Internal Medicine Pulmonary Disease
DX: R06.02 Shortness of breath (principal)

== ENCOUNTER → 2019-08-17 | Outpatient (REF) | payer MEDICARE ==
[2019-08-17 12:52] LABS: PLATELET COUNT, AUTOMATED 230 10^3/uL (150-450)
[2019-08-17 13:03] LABS: INR 1.02; PROTHROMBIN TIME 13.1 SECONDS (11.8-14.0)
== END ==
LOC: M LABDRWAD 12:16
PROVIDERS: ATTEND Internal Medicine Pulmonary Disease
DX: J90 Pleural effusion, not elsewhere classified (principal)

== ENCOUNTER → 2019-08-19 | Outpatient (CLI) | payer MEDICARE ==
--- NOTE | 2019-08-19 15:28 | REP ---
Single view chest: 08/19/2019. Indication: Status post thoracentesis. Pneumothorax evaluation. Comparison: 07/13/2019. Findings: The left-sided pleural effusion is more prominent. There is no pneumothorax. The right lung is clear. Left basilar atelectasis is noted. Impression: Persistent left-sided pleural effusion without pneumothorax. Electronically Signed by Ayden Concepcion DO 08/19/2019 03:19 P
--- NOTE | 2019-08-19 16:54 | REP ---
ULTRASOUND GUIDED LEFT THORACENTESIS The procedure was performed under the direct supervision of Dr. Chow. The risks and benefits of the procedure were explained to the patient and informed consent was obtained. The left pleural effusion was localized using ultrasound guidance. The skin was prepped and draped in a sterile fashion. 1% lidocaine was used as a local anesthetic. Using ultrasound guidance an 8-Burmese multi side-hole catheter was inserted using trocar technique. 710 ml of yellow fluid was withdrawn and sent to the lab for analysis. The patient tolerated the procedure well and there were no immediate complications. After the appropriate amount of monitored convalescence the patient was discharged from the department. Electronically Signed by TIKA Lake 08/19/2019 04:08 P Electronically Signed by Sen Chow MD 08/19/2019 04:45 P
[2019-08-19 17:00] VITALS: BP 148/67
== END ==
LOC: M IRPRO 12:58
PROVIDERS: ATTEND Internal Medicine Pulmonary Disease
DX: J90 Pleural effusion, not elsewhere classified (principal)

== ENCOUNTER → 2019-09-03 | Outpatient (CLI) | payer MEDICARE ==
[2019-09-03 10:46] LABS: BASO # 0.1 10^3/uL (0.0-0.2); BASO % 0.6 % (0.0-1.0); EOS # 0.1 10^3/uL (0.0-0.5); EOS % 0.6 % (0.0-3.0); HEMATOCRIT 43.3 % (36.0-47.0); HEMOGLOBIN 14.1 g/dl (12.0-15.5); LYMPH # 1.3 10^3/uL (1.5-5.0); LYMPH % 12.9 % (24.0-44.0); MEAN CORPUSCULAR HEMOGLOBIN 31.9 pg (27.0-33.0); MEAN CORPUSCULAR HGB CONC 32.6 g/dl (32.0-36.5); MONO # 0.6 10^3/uL (0.0-0.8); MONO % 6.6 % (0.0-5.0); NEUTROPHILS # 7.7 10^3/uL (1.5-8.5); NEUTROPHILS % 79.1 % (36.0-66.0); PLATELET COUNT, AUTOMATED 242 10^3/uL (150-450); RED BLOOD COUNT 4.42 10^6/uL (4.00-5.40); WHITE BLOOD COUNT 9.7 10^3/uL (4.0-10.0)
[2019-09-03 10:55] LABS: ALBUMIN 3.3 GM/DL (3.2-5.2); ALT/SGPT 18 U/L (12-78); BILIRUBIN,TOTAL 0.5 MG/DL (0.2-1.0); BLOOD UREA NITROGEN 23 MG/DL (7-18); CALCIUM LEVEL 8.9 MG/DL (8.8-10.2); CARBON DIOXIDE LEVEL 26 MEQ/L (21-32); CHLORIDE LEVEL 109 MEQ/L (98-107); CREATININE FOR GFR 0.76 MG/DL (0.55-1.30); GLOMERULAR FILTRATION RATE > 60.0 (>32); GLUCOSE, FASTING 85 MG/DL (70-100); POTASSIUM SERUM 3.8 MEQ/L (3.5-5.1); SODIUM LEVEL 143 MEQ/L (136-145); TOTAL PROTEIN 7.1 GM/DL (6.4-8.2)
[2019-09-03 12:22] LABS: PH BODY FLUID 7.517 UNITS (NOT ESTABLISHED); SOURCE, BODY FLUID pH PLEURAL
--- NOTE | 2019-09-03 12:37 | REP ---
Chest x-ray: Two views. History: Post thoracentesis. Comparison study: August 19, 2019. Findings: There is a small quantity of pleural air in the subpulmonic region on the left post thoracentesis. There is less pleural fluid. There is a discoid atelectasis in the left lower lobe. There is an osteoporotic wedge compression deformity in the upper thoracic spine on lateral radiograph with progressive loss of vertebral body height nearly completely collapsed currently. This is approximately the T5 level. There is mild stable wedging at the level just inferior to this. Right lung remains essentially clear. Impression: Small left subpulmonic hydropneumothorax. Decreased amount of pleural fluid post thoracentesis on the left. Recommend followup chest x-ray in 2 hours. Progressive loss of vertebral body heights in one of the upper thoracic vertebrae, approximately T5. Electronically Signed by Fausto Herrera MD 09/03/2019 01:56 P
[2019-09-03 12:46] LABS: APPEARANCE, BODY FLUID HAZY (CLEAR); PLEURAL FL COLOR YELLOW (COLORLESS); SOURCE, BODY FLUID PLEURAL
[2019-09-03 13:06] LABS: AMYLASE, BODY FLUID 50 U/L (NOT ESTABLISHED); LDH, BODY FLUID 158 U/L (NOT ESTABLISHED); SOURCE, BODY FLUID AMYLASE PLEURAL; SOURCE, BODY FLUID GLUCOSE PLEURAL; SOURCE, BODY FLUID LDH PLEURAL; SOURCE, BODY FLUID TOT PROTEIN PLEURAL
[2019-09-03 13:42] VITALS: BP 156/72
--- NOTE | 2019-09-03 13:56 | REP ---
Followup chest x-ray: Two views. 1:35 p.m. film. History: Post thoracentesis on the left, tiny pneumothorax seen on prior film from 11:30 a.m. Findings: There is a tiny quantity of apical pleural air on the current study. There is less pleural air at the left base. There is a small amount of left pleural fluid. Some of the subpulmonic air seen on the initial film as redistributed to the upper portion of the left hemithorax. Overall there is less pneumothorax. Impression: Small decreasing left-sided pneumothorax. Improved left hydrothorax. Electronically Signed by Fausto Herrera MD 09/03/2019 03:16 P
--- NOTE | 2019-09-03 16:24 | REP ---
Ultrasound-guided thoracentesis The procedure was performed by TIKA Bolden, under the direct supervision of Dr. Herrera The risks and benefits of the procedure were explained to the patient and informed consent was obtained both verbally and written. Directly prior to the start of the procedure, a formal timeout was completed in the exam room. Pleural fluid on the left was localized using ultrasound guidance. The skin was prepped and draped in a sterile fashion. 4 of 1% lidocaine 10 mg/ml was used as a local anesthetic. Using ultrasound guidance, an 8-Frisian multi side-hole catheter was inserted and advanced into the fluid. 970 ml of clear yellow colored fluid was withdrawn and sent to the lab for analysis. The patient tolerated the procedure well and there were no immediate complications. After the appropriate amount of monitored convalescence, the patient was discharged from the department. Reviewed by TIKA Jacques 09/03/2019 04:14 P Electronically Signed by Fausto Herrera MD 09/03/2019 04:15 P
== END ==
LOC: M IRPRO 09:56
PROVIDERS: ATTEND Internal Medicine Pulmonary Disease
DX: J90 Pleural effusion, not elsewhere classified (principal)

== ENCOUNTER → 2019-10-25 | Outpatient (CLI) | payer MEDICARE ==
[~2019-10-25] MED LIST changes: +EQL50TAB2 PO; +NICO7DIS24 TD; +THERTAB20 PO; +TRIA0.2571 PO; +VITAD1000T PO
--- NOTE | 2019-10-25 12:20 | REP ---
Clinical: Pleural effusion. Technique: PA and lateral. Comparison: Moderate left pleural effusion has increased since 09/03/2019. Underlying diffuse chronic interstitial changes noted. No pneumothorax. Stable cardiomegaly. Skeletal structures intact. Impression: Moderate left effusion increased from prior examination. Electronically Signed by Boom Tobar MD 10/25/2019 12:11 P
--- NOTE | 2019-10-25 12:21 | REP ---
Clinical: Pleural effusion. Technique: Left lateral decubitus. Findings: Moderate layering left effusion noted. Impression: Moderate layering left effusion. Electronically Signed by Boom Tobar MD 10/25/2019 12:12 P
== END ==
LOC: M ADAMS 09:58
PROVIDERS: ATTEND Internal Medicine Pulmonary Disease
DX: J90 Pleural effusion, not elsewhere classified (principal)

== ENCOUNTER 2019-11-10 08:41 | Inpatient (IN) | payer MEDICARE ==
[~2019-11-10 08:41] MED LIST changes: -EQL50TAB2 PO; -NICO7DIS24 TD; -THERTAB20 PO; -TRIA0.2571 PO; -VITAD1000T PO
[2019-11-10] MEDS ORDERED: ONDANSETRON 4MG/2ML VIAL (J2405) IV PRN (09:00)
[2019-11-10] MEDS ORDERED: BISACODYL 10 MG SUPP PR PRN (09:00)
[2019-11-10] MEDS: HEPARIN SOD (PORCINE) 5000 UNITS/ML VIAL (J1644 PER 1000UNITS) SC SCH ×2 (09:00→20:26)
[2019-11-10] MEDS ORDERED: NORCO, ANEXSIA 5/325MG TABLET (HYDROcodone/ACETAMINOPHEN) PO PRN (09:00)
[2019-11-10] MEDS ORDERED: PERCOCET 5MG/325MG TAB PO PRN (09:00)
[2019-11-10] MEDS ORDERED: LEVALBUTEROL 1.25 MG/0.5 ML CONCENTRATE NEB NEB PRN (09:00)
[2019-11-10 10:20] VITALS: BP 158/74
[2019-11-10 10:26] LABS: BASO % 0.4 % (0.0-1.0); EOS % 0.4 % (0.0-3.0); HEMATOCRIT 41.7 % (36.0-47.0); HEMOGLOBIN 13.7 g/dl (12.0-15.5); LYMPH # 1.1 10^3/uL (1.5-5.0); LYMPH % 12.1 % (24.0-44.0); MEAN CORPUSCULAR HEMOGLOBIN 31.9 pg (27.0-33.0); MEAN CORPUSCULAR HGB CONC 32.9 g/dl (32.0-36.5); MEAN CORPUSCULAR VOLUME 97.2 fl (80.0-96.0); MONO # 0.5 10^3/uL (0.0-0.8); MONO % 5.4 % (0.0-5.0); NEUTROPHILS # 7.3 10^3/uL (1.5-8.5); NEUTROPHILS % 81.1 % (36.0-66.0); PLATELET COUNT, AUTOMATED 283 10^3/uL (150-450); RED BLOOD COUNT 4.29 10^6/uL (4.00-5.40)
[2019-11-10 10:46] LABS: BLOOD UREA NITROGEN 24 MG/DL (7-18); CALCIUM LEVEL 9.3 MG/DL (8.8-10.2); CARBON DIOXIDE LEVEL 28 MEQ/L (21-32); CHLORIDE LEVEL 106 MEQ/L (98-107); CREATININE FOR GFR 0.81 MG/DL (0.55-1.30); GLOMERULAR FILTRATION RATE > 60.0 (>32); GLUCOSE, FASTING 95 MG/DL (70-100); POTASSIUM SERUM 4.6 MEQ/L (3.5-5.1); SODIUM LEVEL 139 MEQ/L (136-145)
[2019-11-10] MEDS ORDERED: flumazeniL 0.5 MG/5 ML VIAL As Ordered ONE (10:51)
[2019-11-10] MEDS ORDERED: MIDAZOLAM INJ 2 MG/2 ML VIAL (J2250) As Ordered ONE (10:52)
[2019-11-10] MEDS ORDERED: LIDOCAINE 1% MDV 20ML VIAL As Ordered ONE (10:52)
[2019-11-10] MEDS ORDERED: EQL50TAB2 PO (11:09)
[2019-11-10] MEDS ORDERED: NICO7DIS24 TD (11:09)
[2019-11-10] MEDS ORDERED: TRIA0.2571 PO (11:09)
[2019-11-10] MEDS ORDERED: VITAD1000T PO (11:09)
[2019-11-10] MEDS ORDERED: THERTAB20 PO (11:09)
[2019-11-10 12:00] VITALS: BP 141/98
--- NOTE | 2019-11-10 13:01 | REP ---
CT of the chest without IV contrast for pleural effusion: Comparison is 08/05/2090. There is a left pleural effusion that has decreased in size. Lung mcnamara otherwise clear. There is chronic parenchymal scarring in the right apex and there is an azygos lobe of the right lung. These findings are unchanged. There are no masses or nodules. There is no mediastinal or axillary lymph node enlargement. In the absence of IV contrast the study is insensitive for hilar lymph node enlargement. The unenhanced thoracic aorta is unremarkable except for calcified atheroma. Cardiac size is normal. There is calcified atheroma in the coronary arteries. No pericardial effusion. The visualized upper abdominal contents are unremarkable. Impression: Left pleural effusion that has decreased in size. No other interval change. Electronically Signed by Sen Bar MD 11/10/2019 12:52 P
[2019-11-10] MEDS ORDERED: LIDOCAINE 1% MDV 20ML VIAL SC ONE (13:50)
[2019-11-10] MEDS ORDERED: MIDAZOLAM INJ 2 MG/2 ML VIAL (J2250) IV ONE (13:50)
[2019-11-10 14:07] LABS: LDH LACTATE DEHYDROGENASE 227 U/L (84-246)
[2019-11-10] MEDS: LEVALBUTEROL 1.25 MG/0.5 ML CONCENTRATE NEB NEB SCH ×2 (14:14→22:27)
--- NOTE | 2019-11-10 14:24 | RO ---
DATE OF PROCEDURE: 11/10/2019 PREPROCEDURE DIAGNOSIS: Left pleural effusion. POSTPROCEDURE DIAGNOSIS: Left pleural effusion. PROCEDURE: Insertion of left lateral inferior chest tube. SURGEON: Narinder Cobian MD ENVIRONMENTAL HEALTH TECHNICIAN: ANESTHESIA: PROCEDURE: Under satisfactory moderate sedate achieved with 2 mg of Versed, the patient was prepped and draped in the usual sterile fashion. Incision was made in the inframammary fold in the approximate sixth intercostal space. A tunnel was created in the chest without difficulty and a #24 chest tube was placed without difficulty. Chest tube was secured to the chest wall with #2 Tevdek suture. The chest tube eluded 800 mL of dark julienne fluid. It was sent for the requisite studies of hematologies, cytologies, and bacteriologies. The patient tolerated the procedure well. A chest x-ray is pending.
--- NOTE | 2019-11-10 14:29 | HPE ---
DATE OF ADMISSION: 11/10/2019 HISTORY OF PRESENT ILLNESS: Ms. Mendoza is a pleasant 89-year-old female who is here today for recurrent pleural effusion drainage. Initially in June 2019, when she was out in [place], [place], she was ambulating and she fell and hit her head and chest. She was taken to [facility] where she was found to have a pleural effusion and had a thoracocentesis done. According to the patient, she states that this fall was insignificant and the only preceding symptoms were shortness of breath, which she did not think was significant as well. She denies any fevers, chills, or night sweats. Any lower extremity edema, lightheadedness or dizziness at the time of the episode. Since then, she has had two more episodes of recurrent pleural effusions on the left side. She underwent a thoracocentesis in early August and then mid August when she had a total of 710 mL of yellow fluid followed by 970 mL of fluid. A fluid analysis at that time on 08/04/2019 was mildly exudative of normal osmotic effusion that looked chronic in nature. Pathology cell block at that time was negative for any malignancy, even though her monocyte count and her lymphocyte counts could represent malignancy. Since the fall, she notes that she was diagnosed with chronic obstructive pulmonary disease (COPD), was not started on any inhalers but has been wearing chronic oxygen 3 liters at baseline. She denies any leg swelling, chest pain, any shortness of breath or any cardiac disease. Since she has been using the oxygen, she noticed her strength is a little bit better and she is able to get in and out of the car without any problems. She is currently independent living who has home health care who comes and sees her twice a week to help with daily functions. PAST MEDICAL HISTORY: 1. Chronic obstructive pulmonary disease (COPD) not on an inhaler. 2. Recurrent pleural effusions. First episode in June 2019. 3. History of multiple orthopaedic injuries in her right leg and right thigh secondary to falls. 4. History of osteoporosis. 5. Insomnia. ALLERGIES: No known drug allergies. HOME MEDICATIONS: - triazolam 0.25 mg 1/2 a tablet as needed nightly for insomnia. - Centrum one tablet by mouth daily - vitamin D3 one tablet by mouth daily - nicotine patch 7 mg transdermal daily - vitamin B complex one tablet by mouth daily FAMILY HISTORY: Reviewed and positive for multiple cancers, multiple myeloma and uterine cancer in her siblings. She states all four of her siblings of cancer. Her father due to coronary artery disease. Brother due to leukemia but had exposure to TB. SOCIAL HISTORY: Admits to being a former smoker, stopped in June 2019. Previously was smoking 1/2 pack to a pack a day. Admits to social alcohol use but denies any illicit drug use. She admits to traveling to [place] and [place], but not to the western [facility]. She used to be a junior high school principal, but currently retired. She denies any pets such as dogs or cats at home. She does have a TB exposure with her brother in childhood. She is unsure if she was tested for it. REVIEW OF SYSTEMS: CONSTITUTIONAL: Denies any weight gain, fevers, chills, night sweats, fatigue or malaise. HEENT: Denies hearing changes, ear pain, nasal congestion, rhinorrhea, sinusitis pain, hoarseness, sore throat. CARDIOVASCULAR: Denies any chest pain, shortness of breath, paroxysmal nocturnal dyspnea, dyspnea on exertion. RESPIRATORY: Admits to dry cough with no sputum production. No wheezing. Admits to a smoking exposure. Smokes one pack a day but quit June 2019. Currently at baseline oxygen at 3 liters. GASTROINTESTINAL: Denies any nausea, vomiting, diarrhea or constipation, heartburn, dysphagia, hematochezia or melena. GENITOURINARY: Denies any dysuria, change in urinary frequency or hematuria. MUSCULOSKELETAL: Admits to orthopaedic injury to the right leg with multiple surgeries. History of osteoporosis, currently denies any back pain, neck pain or worsening joint stiffness. SKIN: Admits to skin abrasions from hitting her leg on the bed. No other new skin changes pruritus or rashes noted. NEUROLOGIC: Denies any weakness, numbness, paresthesia, dizziness or headaches or any coordination issues. Currently does use a cane to ambulate but can walk short distances without falling. HEMATOLOGY: Admits to easy bruising in the shins but no where else. No easy bleeding or any lymphadenopathy. ENDOCRINE: Denies any polydipsia, polyuria or heat intolerance. PHYSICAL EXAMINATION: VITALS: Temperature 98.0 pulse 87, respiration 18, blood pressure 158/74 (102). Pulse ox on 97% on nasal cannula at 3 liters, which is baseline for the patient. Weight 63.4 kg. GENERAL: This is a very pleasant 89-year-old female who does not appear in acute distress, sitting in the bed appropriately answering questions and is not using any respiratory muscles to speak. Speaking in complete sentences with no problems. HEENT: Atraumatic, normocephalic. Pupils, equal, round and reactive. No oral thrush. No jugular venous distention (JVD). No lymphadenopathy. Trachea is midline. Mucous membranes moist. CARDIOVASCULAR: Regular rate and rhythm. No audible murmurs, rubs or gallops. LUNGS: Diffuse crackles can be appreciated, right worse than left. Dullness and percussion to the left lung base up to the mid lung. Diminished breath sounds in the left lower bases. ABDOMEN: Soft, nontender, positive bowel sounds on all four quadrants. EXTREMITIES: Very minimal pitting edema at the ankles. There is some skin breakdown over the shins bilaterally and some bruising from recent trauma hitting the bed. No hematoma. No gross blood noted. NEUROLOGIC: No focal deficit. Ambulates appropriately. No focal deficits. Ambulates appropriately with a cane. PSYCH: Normal mood and affect. Alert and oriented times three but hard of hearing. Hearing aid intact on the left. LABORATORIES: Hematology: WBC 9.0, hemoglobin 13.7, hematocrit 41.7, platelets 283. Chemistry: Sodium 139, potassium 4.6, chloride 106, carbon dioxide 28, iron gap 5, BUN 24, creatinine 0.81, fasting glucose 95, calcium 9.3. ASSESSMENT/PLAN: This is a very pleasant 89-year-old female who is presenting today for recurrent pleural effusion of the left lung. 1. Recurrent pleural effusion at the left lung. This is the patient's fourth thoracocentesis. We are possibly considering that this is a left lower possible osmotic effusion. We do recommend that she gets admitted for a chest tube placement for a thoracocentesis. Will get a CT of the chest to see how significant her pleural effusion is and to help with proper placement of the chest tube. We predict at least 1 to 2 days of admission to see if adequate fluid drainage. Our goal for this thoracocentesis is to see if we can completely drain all the fluid from the pleural cavity. If it does recur, though, will need to see of the patient is a candidate for talc pleurodesis but we hope to not require operation at this current time. The patient is agreeable to do the current thoracocentesis which will be placed later this afternoon. Pain management will be on board with Tylenol, oxycodone and [place]. Also bowel care regimen will be on board as well. 2. Chronic obstructive pulmonary disease (COPD): Currently on 3 liters on baseline oxygen. I will continue as such. Currently not on an inhaler. She is currently stable. Will continue to monitor. 3. Insomnia: We will hold on her triazolam because it is a benzodiazepine and we are going to be placing a chest tube later today and giving her narcotics, possibly upon discharge, we can consider restarting it. It is a as needed drug which she not take daily. 4. History of tobacco abuse. We can continue with her nicotine patch as needed.
[2019-11-10 14:30] LABS: SOURCE, BODY FLUID pH PLEURAL
[2019-11-10 14:42] LABS: APPEARANCE, BODY FLUID CLOUDY (CLEAR); PLEURAL FL COLOR YELLOW (COLORLESS); SOURCE, BODY FLUID PLEURAL
[2019-11-10 14:54] LABS: AMYLASE, BODY FLUID 51 U/L (NOT ESTABLISHED); CHOLESTEROL, BODY FLUID 68 MG/DL (NOT ESTABLISHED); LDH, BODY FLUID 192 U/L (NOT ESTABLISHED); SOURCE, BODY FLUID ALBUMIN PLEURAL; SOURCE, BODY FLUID AMYLASE PLEURAL; SOURCE, BODY FLUID CHOL PLEURAL; SOURCE, BODY FLUID GLUCOSE PLEURAL; SOURCE, BODY FLUID LDH PLEURAL; SOURCE, BODY FLUID TOT PROTEIN PLEURAL; SOURCE, BODY FLUID TRIG PLEURAL; TOTAL PROTEIN, BODY FLUID 4.1 G/DL (NOT ESTABLISHED); TRIGLYCERIDE, BODY FLUID 16 MG/DL (NOT ESTABLISHED)
[2019-11-10] MEDS: KCL 20MEQ IN D5/NS 1000ML 1,000 ML IV SCH ×2 (15:44→20:26)
[2019-11-10] MEDS: MOM 30ML SUSPENSION UDC PO SCH (15:44)
[2019-11-10] MEDS: MULTIVITAMINS/MINERALS THERAP 1 TAB PO SCH (15:44)
[2019-11-10] MEDS: DOCUSATE SODIUM 100 MG CAP PO SCH ×2 (15:44→20:25)
[2019-11-10] MEDS: PANTOPRAZOLE 40MG TAB (PROTONIX) PO SCH (15:46)
[2019-11-10] MEDS: VITAMIN D 1,000 INTERNATIONAL UNITS TABLET PO SCH (15:46)
[2019-11-10 16:00] VITALS: BP 162/80
--- NOTE | 2019-11-10 17:10 | REP ---
CHEST, SINGLE VIEW: Single view of the chest is performed. Comparison radiograph 10/25/2019. There is placement of a left chest tube. Left pleural effusion has diminished. There is no pneumothorax. There is mild residual pleural and parenchymal opacity inferiorly on the left. Right lung is clear. There is calcification of the thoracic aorta. Electronically Signed by Sen Chow MD 11/11/2019 10:35 A
[2019-11-10 20:00] VITALS: BP 132/64
[2019-11-10] MEDS: PERCOCET 5MG/325MG TAB PO PRN (20:26)
[2019-11-10 23:59] VITALS: BP 120/55
[2019-11-11] MEDS: PERCOCET 5MG/325MG TAB PO PRN (00:50)
[2019-11-11 02:04] VITALS: O2SAT 99
[2019-11-11] MEDS: LEVALBUTEROL 1.25 MG/0.5 ML CONCENTRATE NEB NEB SCH ×4 (02:04→21:09)
[2019-11-11 04:00] VITALS: BP 146/68
[2019-11-11 06:31] LABS: BASO % 0.4 % (0.0-1.0); EOS % 0.5 % (0.0-3.0); HEMATOCRIT 38.9 % (36.0-47.0); HEMOGLOBIN 12.6 g/dl (12.0-15.5); LYMPH % 13.4 % (24.0-44.0); MEAN CORPUSCULAR HEMOGLOBIN 31.4 pg (27.0-33.0); MEAN CORPUSCULAR HGB CONC 32.4 g/dl (32.0-36.5); MONO # 0.7 10^3/uL (0.0-0.8); MONO % 8.7 % (0.0-5.0); NEUTROPHILS # 5.8 10^3/uL (1.5-8.5); NEUTROPHILS % 76.7 % (36.0-66.0); PLATELET COUNT, AUTOMATED 242 10^3/uL (150-450); RED BLOOD COUNT 4.01 10^6/uL (4.00-5.40); WHITE BLOOD COUNT 7.5 10^3/uL (4.0-10.0)
[2019-11-11 07:02] LABS: BLOOD UREA NITROGEN 22 MG/DL (7-18); CALCIUM LEVEL 8.9 MG/DL (8.8-10.2); CARBON DIOXIDE LEVEL 28 MEQ/L (21-32); CHLORIDE LEVEL 105 MEQ/L (98-107); GLOMERULAR FILTRATION RATE > 60.0 (>32); GLUCOSE, FASTING 103 MG/DL (70-100); POTASSIUM SERUM 4.1 MEQ/L (3.5-5.1); SODIUM LEVEL 137 MEQ/L (136-145)
[2019-11-11 07:15] VITALS: BP 143/65
[2019-11-11] MEDS: MOM 30ML SUSPENSION UDC PO SCH (08:19)
[2019-11-11] MEDS: VITAMIN D 1,000 INTERNATIONAL UNITS TABLET PO SCH (08:19)
[2019-11-11] MEDS: DOCUSATE SODIUM 100 MG CAP PO SCH ×2 (08:20→20:14)
[2019-11-11] MEDS: PANTOPRAZOLE 40MG TAB (PROTONIX) PO SCH (08:20)
[2019-11-11] MEDS: HEPARIN SOD (PORCINE) 5000 UNITS/ML VIAL (J1644 PER 1000UNITS) SC SCH ×2 (08:20→20:14)
[2019-11-11] MEDS: MULTIVITAMINS/MINERALS THERAP 1 TAB PO SCH (08:20)
[2019-11-11] MEDS: NICOTINE 7 MG/24 HR TRANSDERMAL TD SCH (08:24)
[2019-11-11 08:56] LABS: ALBUMIN 3.1 GM/DL (3.2-5.2); ALT/SGPT 15 U/L (12-78); BILIRUBIN,DIRECT 0.1 MG/DL (0.0-0.2); BILIRUBIN,TOTAL 0.4 MG/DL (0.2-1.0); TOTAL PROTEIN 6.6 GM/DL (6.4-8.2)
--- NOTE | 2019-11-11 08:58 | REP ---
PA and lateral chest: Comparison is the portable chest of 11/10/2019. The left thoracotomy tube is unchanged. The left pleural effusion is unchanged. Remainder of the left lung is clear. Right lung is clear. The the cardiac size is mildly enlarged, unchanged. There is a tiny amount of subcutaneous emphysema along the left lateral chest wall. Impression: No significant interval change. Electronically Signed by Sen Bar MD 11/11/2019 08:50 A
--- NOTE | 2019-11-11 10:40 | IPN ---
DATE: 11/11/2019 Ms. Mendoza was seen and examined this morning during bedside rounds in the progressive care unit (PCU) prior to going down to get her chest x-ray this morning. She states that she is doing very well. She has no complaints this morning. She has noticed that her shortness of breath has gotten better. She continues to be on 3 liters of oxygen at baseline. She slept relatively well last night without any problems. She denies any pain or discomfort. She has tolerated her diet with no problem as well. She did tell me this morning that she would like her breakfast, but understands that she will have to wait until after her chest x-ray. There are no overnight events reported. PHYSICAL EXAMINATION: VITAL SIGNS: Temperature 97.9, pulse 77, respiratory rate 18, blood pressure 143/65, MAP 91, pulse oximetry 93% on 4 liters of nasal cannula. Intake and output: Intake total in the last 24 hours 790 mL, output total 2360 mL with a net balance of negative 1560 mL. Urine total 1200 mL. Chest tube drainage 1150 mL. Weight this morning was 63.2 kg. GENERAL: This is a very pleasant 89-year-old female who is sitting up in bed and does not appear in acute distress, appropriately answering questions, no accessory muscle use, speaking in complete sentences. HEENT: Atraumatic, normocephalic. No oral thrush. No lymphadenopathy. Trachea is midline. CARDIOVASCULAR: Regular rate and rhythm. No audible murmurs, rubs or gallops. LUNGS: Diffuse crackles appreciated but improved, right worse than left. Minimal dullness to percussion in the left base, which has improved as well. Chest tube is in place with no drainage. Minimal tenderness at the left axillary line. ABDOMEN: Soft, nontender. EXTREMITIES: Very minimal pitting edema at the ankles. Still continues to have skin breakdown over the shins bilaterally, some bruising from recent trauma hitting the bed, but not hematoma. NEUROLOGIC: No focal deficits. Hearing aid intact in the left. PSYCHIATRIC: Alert and oriented times three. LABORATORY DATA: Hematology: WBC 7.5, hemoglobin 12.6, hematocrit 38.9, platelets 242. Chemistry: Sodium 137, potassium 4.1, chloride 105, carbon dioxide 28, anion gap 4, BUN 22, creatinine 0.80, fasting glucose 103. Microbiology: Gram-stain negative for any growth. Chest x-ray currently pending, she just went down. ASSESSMENT AND PLAN: This is an 89-year-old female who was admitted for recurrent pleural effusion of the left lung. 1. Recurrent pleural effusion of the left lung. This is currently her fourth thoracocentesis with a chest tube in place. Last night she had adequate output of over 1 liter. Gram-stains are currently negative for any organisms. Fluid LDH was 193, fluid protein was 4.1, serum LDH was 227. Based on the LDH, she does not meet Light's criteria, so I will order total protein this morning and see what her protein ratio is. I do believe that this is possibly secondary to osmotic pleural effusion. We will continue with chest tube with suction and see how the chest x-ray is this morning. Continue with pain management as prescribed. 2. Chronic obstructive pulmonary disease (COPD), on 3 liters of oxygen at home. Currently not in exacerbation. Stable. Continue to monitor. 3. Insomnia. Continue to hold her triazolam, can restart on discharge. 4. History of tobacco abuse. We will continue with nicotine as needed. Attending addendum: CXR shows left lower lobe consolidative or mass like process. Will obtain CT chest to see underlying pathology to explain multiple recurrences. . Will also await fluid pathology. With smoking history malignancy is not out of the question. MTDD
[2019-11-11 12:00] VITALS: BP 129/70
--- NOTE | 2019-11-11 12:08 | REP ---
CT of the chest without IV contrast for left pleural effusion: Comparison is the plain film PA and lateral chest performed earlier today. There is a left thoracotomy tube. There is a small left pneumothorax along the left lateral chest wall. There is a small volume of subcutaneous emphysema along the left lateral chest wall. There is a small left pleural effusion in the deep posterior sulcus. There is a wedge-shaped consolidation in the anterior and lateral basilar segments of the left lower lobe pointing toward the hilus, possibly from central bronchial obstruction. The left upper lobe is clear. The right lung is clear. No mediastinal or axillary adenopathy. The unenhanced thoracic aorta is unremarkable. Cardiac size normal. There is no pericardial effusion. In the upper abdomen there is a 14 ml hypodense left adrenal nodule with the median CT density measuring negative 3 HU, compatible with benign adenoma. Impression: There is a left thoracotomy tube and a small left pneumothorax. A small volume of subcutaneous emphysema in the left lateral chest wall. There is a small left pleural effusion. There is a wedge-shaped consolidation in the anterior and lateral basilar segments of the left lower lobe pointing toward the hilus, possibly from central bronchial obstruction. Hypodense left adrenal nodule as described. Likely benign. Electronically Signed by Sen Bar MD 11/11/2019 11:59 A
[2019-11-11 16:00] VITALS: BP 148/68
[2019-11-11 20:00] VITALS: BP 133/66
[2019-11-11] MEDS: ACETAMINOPHEN TAB 650MG DOSE (2X325MG) PO PRN (20:14)
[2019-11-12] VITALS (10 sets, daily range): BP systolic 133–185; BP diastolic 65–89
[2019-11-12] MEDS: LEVALBUTEROL 1.25 MG/0.5 ML CONCENTRATE NEB NEB SCH ×4 (04:24→20:54)
[2019-11-12 06:01] LABS: BASO % 0.7 % (0.0-1.0); EOS # 0.1 10^3/uL (0.0-0.5); EOS % 1.5 % (0.0-3.0); HEMATOCRIT 37.6 % (36.0-47.0); HEMOGLOBIN 12.1 g/dl (12.0-15.5); LYMPH # 0.9 10^3/uL (1.5-5.0); LYMPH % 14.5 % (24.0-44.0); MEAN CORPUSCULAR HEMOGLOBIN 31.4 pg (27.0-33.0); MEAN CORPUSCULAR HGB CONC 32.2 g/dl (32.0-36.5); MEAN CORPUSCULAR VOLUME 97.7 fl (80.0-96.0); MONO # 0.5 10^3/uL (0.0-0.8); MONO % 8.7 % (0.0-5.0); NEUTROPHILS # 4.5 10^3/uL (1.5-8.5); NEUTROPHILS % 74.3 % (36.0-66.0); PLATELET COUNT, AUTOMATED 214 10^3/uL (150-450); RED BLOOD COUNT 3.85 10^6/uL (4.00-5.40); WHITE BLOOD COUNT 6.1 10^3/uL (4.0-10.0)
[2019-11-12 06:14] LABS: BLOOD UREA NITROGEN 17 MG/DL (7-18); CALCIUM LEVEL 8.1 MG/DL (8.8-10.2); CARBON DIOXIDE LEVEL 31 MEQ/L (21-32); CHLORIDE LEVEL 108 MEQ/L (98-107); CREATININE FOR GFR 0.71 MG/DL (0.55-1.30); GLOMERULAR FILTRATION RATE > 60.0 (>32); GLUCOSE, FASTING 94 MG/DL (70-100); SODIUM LEVEL 142 MEQ/L (136-145)
--- NOTE | 2019-11-12 07:58 | REP ---
PA and lateral chest: Comparison is 11/11/2019. The left thoracotomy tube is unchanged. The left pleural effusion is unchanged. The subcutaneous emphysema along the left lateral chest wall has resolved. The lung mcnamara otherwise clear. Cardiac size normal. Riana, mediastinum, and skeletal structures are unremarkable except for bilateral shoulder osteoarthritis, unchanged. Impression: No significant interval change. Electronically Signed by Sen Bar MD 11/12/2019 07:49 A
[2019-11-12] MEDS: MOM 30ML SUSPENSION UDC PO SCH (09:27)
[2019-11-12] MEDS: HEPARIN SOD (PORCINE) 5000 UNITS/ML VIAL (J1644 PER 1000UNITS) SC SCH ×2 (09:27→20:31)
[2019-11-12] MEDS: PANTOPRAZOLE 40MG TAB (PROTONIX) PO SCH (09:27)
[2019-11-12] MEDS: DOCUSATE SODIUM 100 MG CAP PO SCH ×2 (09:27→20:30)
[2019-11-12] MEDS: VITAMIN D 1,000 INTERNATIONAL UNITS TABLET PO SCH (09:27)
[2019-11-12] MEDS: MULTIVITAMINS/MINERALS THERAP 1 TAB PO SCH (09:27)
[2019-11-12] MEDS: NICOTINE 7 MG/24 HR TRANSDERMAL TD SCH (09:28)
[2019-11-12] MEDS ORDERED: LIDOCAINE 1% MDV 20ML VIAL As Ordered ONE (12:14)
--- NOTE | 2019-11-12 14:09 | IPN ---
DATE: 11/12/2019 Ns. Mendoza was seen and examined this morning during bedside rounds. She states that she is feeling relatively well with the chest tube. She has no discomfort. No complaints this morning. She is having her breakfast with no problems and has no issues to convey today. She would like to know when she is going home but understands that she cannot because of the weather outside. Her son cannot come in today because she lives in [facility]. There is no overnight events reported last night. She went down for a chest x-ray this morning via wheelchair and she had problems with this. She continues to be on 3 liters of nasal cannula and there were no telemetry changes noted on EKG. There no telemetry changes noted last night. PHYSICAL EXAMINATION: VITALS: Temperature 98.3, pulse 87, respiration 20, blood pressure 159/65, (MAP of 96). Pulse ox 94% on 3 liters or nasal cannula. GENERAL: This is a very pleasant 89-year-old female who does not appear to be in any acute distress appropriately answering questions. No accessory muscle use. HEENT: Atraumatic, normocephalic. Pupils are equal and reactive. No oral thrush. No lymphadenopathy. Trachea is midline. CARDIOVASCULAR: Regular rate and rhythm. No audible murmurs, rubs or gallops. LUNGS: Minimal crackles appreciated at the bases of the lungs. There is slight diminished breath sounds on the left lower base that is possible for a rub or a splashing sound appreciated. She currently does have a chest tube in place. Minimal tenderness in the left axillary line. ABDOMEN: Soft, nontender. Positive bowel sounds in all four quadrants. EXTREMITIES: No lower extremity edema. NEUROLOGIC: No focal deficit. Hearing aide in place on the left. PSYCHIATRIC: Alert and oriented times three. Very joyous and jolly during the exam. LABORATORIES: Hematology: WBC 6.1, hemoglobin 12.1, hematocrit 37.6, platelets 214. Chemistry: Sodium 142, potassium 4.0, chloride 108, carbon dioxide 31, anion gap 3, BUN 17, creatinine 0.71. GFR greater than 60.0, fasting glucose 94. She had a CT of the chest yesterday which showed left thoracotomy tube and a small left pneumothorax. A small volume of subcutaneous emphysema on the left lateral chest wall. There is a small left pleural effusion, a wedge-shaped consolidation in the anterolateral basilar segment of the left lower lobe pointing towards the hilus. Possible central bronchial obstruction and hyperdense left adrenal nodule likely benign. Chest x-ray this morning showed no significant interval changes. There is subcutaneous emphysema along the left lateral chest wall has resolved. ASSESSMENT/PLAN: This is an 89-year-old female who was admitted for recurrent pleural effusion of the left lung. 1. Recurrent pleural effusion of the left lung. Currently here for left thoracentesis since June 2019. In the last 24 hours, she has only put out 170 mL of fluid out of the chest tube. We will continue to place her on suction for we are going to be going down for a chest biopsy for the abnormal CT of the lung. Please refer to problem #2 for that plan. Will continue with pain control and bowel care as prescribed. No other changes will be made. Possibly discontinue the chest tube tomorrow. 2. Abnormal CT of the chest: There is an anterolateral wedge consolidation in the bibasilar segments at the left lower lobe. I am unsure if this is inflammatory/atelectasis versus malignancy. Because of the patient's pertinent history of significant smoking abuse. Which she just quit recently in June 2019, we recommend getting a CT guided chest biopsy of this lesion. If this is negative, I do not think we will pursue this further because the patient is an 89-year-old female with advanced age. She does state that if this lung biopsy did show any underlying malignancy, she is willing to go through cancer therapy if needed. Will continue to monitor the patient. Will continue with the chest tube on suction to anticipate possible complications with the CT-guided biopsy. 3. Chronic obstructive pulmonary disease (COPD) on 3 liters of oxygen at home, apparently not in any exacerbation, currently stable. Continue to monitor. 4. Insomnia: Continue to hold her home triazolam. Will continue upon discharge. 5. History of tobacco abuse. Continue with nicotine patch as needed. MTDD
[2019-11-12] MEDS: ACETAMINOPHEN TAB 650MG DOSE (2X325MG) PO PRN (14:45)
--- NOTE | 2019-11-12 15:27 | REP ---
CT-GUIDED LEFT LOWER LOBE LUNG BIOPSY The procedure was performed under the direct supervision of Dr. Herrera. The patient has a history of A wedge-shaped consolidation in the lateral basilar segment of the left lower lobe seen on a previous CT scan dated 11/11/2019. The risks and benefits of the procedure were explained to the patient and informed consent was obtained. The left lower lobe lung mass was localized using CT guidance. The skin was prepped and draped in a sterile fashion. 1% lidocaine was used as a local anesthetic. Using CT guidance a 19/20 gauge coaxial needle biopsy system was inserted and advanced into the mass. Five core biopsy samples were obtained and sent to lab. The patient tolerated the procedure well and there were no immediate complications. After the appropriate amount of monitored convalescence the patient was discharged from the department. Electronically Signed by TIKA Lake 11/12/2019 01:30 P Electronically Signed by Fausto Herrera MD 11/12/2019 01:52 P
[2019-11-12] MEDS ORDERED: SLF 3 ML SYR IV PRN (15:45)
[2019-11-12] MEDS: RAMELTEON 8 MG TAB (ROZEREM) PO SCH (20:30)
[2019-11-12] MEDS: SLF 3 ML SYR IV SCH (20:31)
[2019-11-13] VITALS: BP 147/83
[2019-11-13] MEDS: ACETAMINOPHEN TAB 650MG DOSE (2X325MG) PO PRN ×2 (00:09→19:39)
[2019-11-13] MEDS: LEVALBUTEROL 1.25 MG/0.5 ML CONCENTRATE NEB NEB SCH ×4 (02:00→20:00)
[2019-11-13 04:00] VITALS: BP 142/67
[2019-11-13] MEDS: SLF 3 ML SYR IV SCH ×3 (05:23→20:52)
[2019-11-13 05:37] LABS: BASO % 0.7 % (0.0-1.0); EOS # 0.1 10^3/uL (0.0-0.5); EOS % 1.3 % (0.0-3.0); HEMATOCRIT 36.1 % (36.0-47.0); HEMOGLOBIN 11.9 g/dl (12.0-15.5); LYMPH # 0.9 10^3/uL (1.5-5.0); LYMPH % 15.4 % (24.0-44.0); MONO # 0.5 10^3/uL (0.0-0.8); MONO % 8.8 % (0.0-5.0); NEUTROPHILS # 4.5 10^3/uL (1.5-8.5); NEUTROPHILS % 73.5 % (36.0-66.0); PLATELET COUNT, AUTOMATED 228 10^3/uL (150-450); RED BLOOD COUNT 3.72 10^6/uL (4.00-5.40); WHITE BLOOD COUNT 6.1 10^3/uL (4.0-10.0)
[2019-11-13 06:04] LABS: BLOOD UREA NITROGEN 18 MG/DL (7-18); CALCIUM LEVEL 8.3 MG/DL (8.8-10.2); CARBON DIOXIDE LEVEL 30 MEQ/L (21-32); CHLORIDE LEVEL 107 MEQ/L (98-107); CREATININE FOR GFR 0.69 MG/DL (0.55-1.30); GLOMERULAR FILTRATION RATE > 60.0 (>32); GLUCOSE, FASTING 106 MG/DL (70-100); POTASSIUM SERUM 4.3 MEQ/L (3.5-5.1); SODIUM LEVEL 141 MEQ/L (136-145)
[2019-11-13 07:45] VITALS: BP 159/74
[2019-11-13] MEDS: NICOTINE 7 MG/24 HR TRANSDERMAL TD SCH (08:24)
[2019-11-13] MEDS: MOM 30ML SUSPENSION UDC PO SCH (08:25)
[2019-11-13] MEDS: MULTIVITAMINS/MINERALS THERAP 1 TAB PO SCH (08:25)
[2019-11-13] MEDS: HEPARIN SOD (PORCINE) 5000 UNITS/ML VIAL (J1644 PER 1000UNITS) SC SCH ×2 (08:25→20:51)
[2019-11-13] MEDS: PANTOPRAZOLE 40MG TAB (PROTONIX) PO SCH (08:25)
[2019-11-13] MEDS: DOCUSATE SODIUM 100 MG CAP PO SCH ×3 (08:25→20:53)
[2019-11-13] MEDS: VITAMIN D 1,000 INTERNATIONAL UNITS TABLET PO SCH (08:25)
[2019-11-13 11:30] VITALS: BP 140/84
[2019-11-13] MEDS ORDERED: LIDOCAINE 1% MDV 20ML VIAL IM ONE (11:30)
--- NOTE | 2019-11-13 14:27 | REP ---
CHEST, TWO VIEWS: Two views of the chest are performed and compared to prior study of 11/12/2019. Left chest tube remains in place, unchanged. There may be a very tiny left apical pneumothorax. Inferior left pleural and parenchymal opacity is unchanged. Right lung is unchanged in appearance. Heart and mediastinum are unchanged. IMPRESSION: Stable exam. Electronically Signed by Sen Chow MD 11/13/2019 06:52 P
--- NOTE | 2019-11-13 15:09 | IPN ---
DATE: 11/13/2019 SUBJECTIVE: Ms. Mendoza was seen and examined this morning during bedside rounds. She states that she is feeling really well this morning. She has no discomfort where the chest biopsy was done earlier yesterday. She would like to know when she can have this chest tube removed. She has no complaints. There were no overnight events reported. She denies any nausea, vomiting or diarrhea. She does admit to some constipation, but they will be giving her some bowel care that is helping. She is ambulating well around the halls with no problems. No chest pain. No shortness of breath or trouble breathing. She does not that she has a pimple on her right shoulder that is significantly tender and she was wondering if we can remove it. There were no overnight events from nursing or telemetry. PHYSICAL EXAMINATION: VITAL SIGNS: Temperature 97.4, pulse 91, respirations 18, blood pressure 159/74 (102), pulse oximetry 93% on 2 liters of nasal cannula. INTAKE AND OUTPUT: Input is 340, output was 200, with a balance of 140. Chest tube drainage was 100 mL. GENERAL: This is a very pleasant 89-year-old female who does not appear in any acute distress, who is appropriately answering questions. No accessory muscle use. Speaking in complete sentences. HEENT: Atraumatic, normocephalic. Pupils equal, round and reactive. No oral thrush. No lymphadenopathy. Trachea is midline. CARDIOVASCULAR: Regular rate and rhythm. No audible murmurs, rubs or gallops. RESPIRATORY: Minimal crackles appreciated at the base of the lungs. Aeration is improved in the left lower base. Chest tube in place. Very minimal tenderness. No discharge or drainage noted. ABDOMEN: Soft, nontender. EXTREMITIES: No lower extremity edema. There is a small inclusion cyst on the right upper shoulder anteriorly, raised, pus-like appearing, slightly tender to touch, measures about 1 x 1 cm with a height of 1 cm as well. NEUROLOGIC: No focal deficits noted. PSYCHIATRIC: Very joyous and jolly during the exam. Alert and oriented times three. LABORATORIES: WBC 6.1, hemoglobin 11.9, hematocrit 36.1, platelets 228. Chemistries: Sodium 141, potassium 4.3, chloride 107, carbon dioxide 30, BUN 18, creatinine 0.69, fasting glucose 106, calcium 8.3. Cell block of the pleural fluid: Lymphatic infusion, predominantly lymphocytes and scattered mesothelial cells and blood elements. IMAGING: Chest x-ray shows consistent small left lower lobe consolidation that appears anterior and lateral. Does not appear worsening or improving. Currently stable. No pleural effusion. There is some blunting of the costophrenic angles at the left bases, but I do believe this is secondary to the consolidation that she has in the anterolateral basilar. No increased vascular congestion noted. ASSESSMENT AND PLAN: This is an 89-year-old female who was admitted for recurrent pleural effusion of the left lung. 1. Recurrent pleural effusion of the left lung. Currently here for her fourth thoracentesis since June 2019. In the last 24 hours, she has put out 100 mL in the chest tube. We will remove the chest tube today and have repeat imaging tomorrow prior to discharge. We are currently awaiting chest biopsy results, which will take more than a couple of days, so the patient will follow up with Dr. Cobian in one weeks' time to have repeat chest x-ray, as well as to follow up with the results of the pathology of the biopsy. 2. Wedge-like consolidation of the anterolateral basilar segment of the left lower lobe. Status post chest biopsy yesterday, 11/12/2019. Currently awaiting pathology results. Will follow up with Dr. Cobian in one weeks' time for these results. She states that if it is underlying malignancy, she is willing to go through cancer therapy. If negative, though, no further assessment will be needed. 3. Chronic obstructive pulmonary disease. On 3 liters of nasal cannula at home. Stable. Continue to monitor. 4. Insomnia. Will continue to hold her home triazolam. Rozerem 8 mg at bedtime is on board, which she can use to help her to sleep. 5. History of tobacco abuse. Continue with nicotine patch as needed. 6. Infected inclusion cyst on the right upper arm. We will kaylee the inclusion cyst today under lidocaine to provide some relief. Will apply bandage today, then expose to air tomorrow morning. MTDD
[2019-11-13 15:37] VITALS: BP 119/55
[2019-11-13 20:00] VITALS: BP 119/59
[2019-11-13] MEDS: RAMELTEON 8 MG TAB (ROZEREM) PO SCH (20:50)
[2019-11-14] VITALS: BP 111/75
[2019-11-14] MEDS: LEVALBUTEROL 1.25 MG/0.5 ML CONCENTRATE NEB NEB SCH ×2 (02:00→08:00)
[2019-11-14 04:00] VITALS: BP 144/66
[2019-11-14 05:13] LABS: BASO # 0.1 10^3/uL (0.0-0.2); BASO % 0.8 % (0.0-1.0); EOS # 0.1 10^3/uL (0.0-0.5); EOS % 2.3 % (0.0-3.0); HEMATOCRIT 37.5 % (36.0-47.0); HEMOGLOBIN 12.3 g/dl (12.0-15.5); LYMPH # 1.4 10^3/uL (1.5-5.0); LYMPH % 22.2 % (24.0-44.0); MEAN CORPUSCULAR HEMOGLOBIN 31.9 pg (27.0-33.0); MEAN CORPUSCULAR HGB CONC 32.8 g/dl (32.0-36.5); MEAN CORPUSCULAR VOLUME 97.2 fl (80.0-96.0); MONO # 0.6 10^3/uL (0.0-0.8); MONO % 9.8 % (0.0-5.0); NEUTROPHILS % 64.6 % (36.0-66.0); PLATELET COUNT, AUTOMATED 237 10^3/uL (150-450); RED BLOOD COUNT 3.86 10^6/uL (4.00-5.40); WHITE BLOOD COUNT 6.1 10^3/uL (4.0-10.0)
[2019-11-14 05:33] LABS: BLOOD UREA NITROGEN 18 MG/DL (7-18); CALCIUM LEVEL 8.9 MG/DL (8.8-10.2); CARBON DIOXIDE LEVEL 30 MEQ/L (21-32); CHLORIDE LEVEL 108 MEQ/L (98-107); CREATININE FOR GFR 0.76 MG/DL (0.55-1.30); GLOMERULAR FILTRATION RATE > 60.0 (>32); GLUCOSE, FASTING 102 MG/DL (70-100); POTASSIUM SERUM 4.3 MEQ/L (3.5-5.1); SODIUM LEVEL 140 MEQ/L (136-145)
[2019-11-14] MEDS: SLF 3 ML SYR IV SCH (06:24)
[2019-11-14 07:53] VITALS: BP 144/87
[2019-11-14] MEDS: NICOTINE 7 MG/24 HR TRANSDERMAL TD SCH (08:06)
[2019-11-14] MEDS: MULTIVITAMINS/MINERALS THERAP 1 TAB PO SCH (08:07)
[2019-11-14] MEDS: VITAMIN D 1,000 INTERNATIONAL UNITS TABLET PO SCH (08:07)
[2019-11-14] MEDS: DOCUSATE SODIUM 100 MG CAP PO SCH (08:07)
[2019-11-14] MEDS: PANTOPRAZOLE 40MG TAB (PROTONIX) PO SCH (08:07)
[2019-11-14] MEDS: MOM 30ML SUSPENSION UDC PO SCH (08:07)
[2019-11-14] MEDS: HEPARIN SOD (PORCINE) 5000 UNITS/ML VIAL (J1644 PER 1000UNITS) SC SCH (08:08)
--- NOTE | 2019-11-14 10:07 | REP ---
CHEST, TWO VIEWS: Two views of the chest are performed and compared to prior study of 11/13/2019. The left chest tube has been removed. There appears to be a very tiny left apical pneumothorax. New mild fluid is seen in the superior left major fissure. Pleural and parenchymal opacity in the left lung base is unchanged. No new findings are seen in the right lung. The heart and mediastinum are unchanged. There are degenerative changes of the spine with old compression deformity of an upper thoracic vertebral body. IMPRESSION: Removal of left chest tube. New mild fluid in the superior left major fissure. No significant change pleural and parenchymal opacity left lung base. Very tiny left apical pneumothorax. Electronically Signed by Sen Chow MD 11/14/2019 06:31 P
--- NOTE | 2019-11-15 14:46 | DSES ---
DATE OF ADMISSION: 11/10/2019 DATE OF DISCHARGE: 11/14/2019 ADMITTING PHYSICIAN: Dr. Narinder Cobian PRIMARY CARE PROVIDER: Dr. Jack RAMIRES DIAGNOSES: 1. Recurrent pleural effusion, probably secondary to osmotic hemothorax. 2. Wedge like consolidation of the anterolateral basilar segment of the left lower lobe, status post chest biopsy on 11/12/2019. 3. Chronic obstructive pulmonary disease (COPD) on 3 liters of oxygen. 4. Insomnia. 5. History of tobacco abuse. 6. Inclusion cyst on the right upper shoulder blade. PROCEDURES PERFORMED DURING STAY: Left chest tube placement on 11/10/2019. CONSULTATIONS: None. HOSPITAL COURSE: Ms. Mendoza was admitted on 11/10/2019 for recurrent pleural effusion on the left. She had a chest tube placed by Dr. Cobian and I at bedside. She had adequate amount of output through the chest tube, which was monitored with serial chest x-rays. She had a CT of the chest done for which she had some pleural thickening on the left seen on chest x-ray and it showed a possible anterior wedge like consolidation in the anterolateral lower lobe. Pathology report for this biopsy was pending on the day of discharge and it was advised that she followup with Dr. Cobian in 1 week for the results of the pathology. The patient had no fevers or complications during her stay. She was very pleasant to work with while she was admitted. On the day of discharge, it was advised to her to followup with her primary care provider for the inclusion cyst that she had on her right upper arm, for which she would like to have it removed. It was recommended that she discuss with them for possible ellipse biopsy so it can be sent for pathology due to her family history of cancer. She was agreeable to this plan. There are no new medications on the day of discharge. We did provide a prescription for home care for physical therapy (PT) and home health. We advised that she was to followup with her primary care provider for renewal of this if needed. The patient was agreeable to this plan. On the day of discharge, all of her questions were answered and she was stable to go home. PHYSICAL EXAMINATION: VITAL SIGNS: Temperature 97.7, pulse 84, respiration rate 18, blood pressure 144/86 (106), saturating 95% on 3 liters nasal cannula. GENERAL This is a very pleasant 89-year-old female who does not appear in acute distress. She was appropriately answering questions with no accessory muscle use, speaking in complete sentences. HEENT: Atraumatic, normocephalic. Pupils are equal, round and reactive. No oral thrush. No lymphadenopathy. Trachea is midline. CARDIOVASCULAR: Regular rate and rhythm. No audible murmurs, rubs or gallops. RESPIRATORY: Bibasilar crackles appreciated at the bases. Aeration is improved. Bandage over chest tube site was nontender. Chest tube was removed yesterday. No discharge or drainage noted. ABDOMEN: Soft, nontender. EXTREMITIES: No lower extremity edema. Right upper arm anterior inclusion cyst that is slightly tender to touch and measuring about 1 x 1 x 1. NEUROLOGIC: No focal deficits. PSYCHIATRIC: Continues to be very joyous on examination. Alert and oriented times three. DISPOSITION: The patient is stable to be discharged home with home care. DISCHARGE CONDITION: Improved and stable. PROGNOSIS: Fair. FOLLOWUP: Followup with Dr. Cobian in 1 week and primary care provider for evaluation of the inclusion cyst on the right arm. ACTIVITY: As prior to admission. Advised no driving until followup with Dr. Cobian. DIET: As prior to admission. Time spent on discharge: 35 minutes.
== END 2019-11-14 12:16 | disposition home health service (06) | DRG 188 ==
LOC: M PCU 09:43
PROVIDERS: ADMIT Thoracic Surgery (Cardiothoracic Vascular Surgery); ATTEND Thoracic Surgery (Cardiothoracic Vascular Surgery)
PROC: 0W9B30Z Drainage of Left Pleural Cavity with Drainage Device, Percutaneous Approach (ICD-10-PCS; 2019-11-10)
PROC: 0BBJ3ZX Excision of Left Lower Lung Lobe, Percutaneous Approach, Diagnostic (ICD-10-PCS; principal; 2019-11-12 11:43)
DX: J90 Pleural effusion, not elsewhere classified (principal); J98.2 Interstitial emphysema; J94.2 Hemothorax; J44.9 Chronic obstructive pulmonary disease, unspecified; G47.00 Insomnia, unspecified; L72.0 Epidermal cyst; M81.0 Age-related osteoporosis without current pathological fracture; R29.6 Repeated falls; Z79.899 Other long term (current) drug therapy; Z87.891 Personal history of nicotine dependence

== ENCOUNTER → 2019-11-19 | Outpatient (CLI) | payer MEDICARE ==
[~2019-11-19] MED LIST changes: +EQL50TAB2 PO; +NICO7DIS24 TD; +THERTAB20 PO; +TRIA0.2571 PO; +VITAD1000T PO
--- NOTE | 2019-11-19 15:05 | REP ---
CHEST, TWO VIEWS: Two views of the chest are performed and compared to a prior study of 11/14/2019. The fluid in the left major fissure appears to have resolved. There is pleural and parenchymal opacity in the left lung base unchanged. Accentuation of bibasilar interstitial markings are stable. The heart and mediastinum are unchanged. There is calcification of the thoracic aorta. There are degenerative changes of the spine. There is a stable significant compression deformity at T5 and mild to moderate compression deformity of T2, unchanged. IMPRESSION: The previously noted fluid in the left major fissure superiorly has resolved. Other findings are stable as discussed in detail above. Electronically Signed by Sen Chow MD 11/23/2019 04:02 P
== END ==
LOC: M ADAMS 13:15
PROVIDERS: ATTEND Thoracic Surgery (Cardiothoracic Vascular Surgery)
DX: J90 Pleural effusion, not elsewhere classified (principal); I70.0 Atherosclerosis of aorta

== ENCOUNTER → 2019-12-02 | Outpatient (REF) | payer MEDICARE | LOC: M LAB REF 14:47 | PROVIDERS: ATTEND Surgery | DX: C44.622 Squamous cell carcinoma of skin of right upper limb, including shoulder (principal) ==

== ENCOUNTER → 2019-12-08 | Outpatient (CLI) | payer MEDICARE ==
--- NOTE | 2019-12-08 11:08 | REP ---
Clinical: Pleural effusion. Technique: PA and lateral. Comparison: 11/19/2019. Findings: Mediastinum and cardiac silhouette are stable. Diffuse bilateral pleuroparenchymal changes including bibasilar scarring and blunting to the diaphragmatic surfaces (left greater than right) are again noted and similar to prior examination. No new acute consolidation. No pneumothorax. Skeletal structures demonstrate osteopenia and degenerative changes. Impression: Diffuse chronic changes primarily involving the bilateral lung bases (left greater than right) similar to prior examination. Electronically Signed by Boom Tobar MD 12/08/2019 10:59 A
== END ==
LOC: M ADAMS 10:42
PROVIDERS: ATTEND Thoracic Surgery (Cardiothoracic Vascular Surgery)
DX: J90 Pleural effusion, not elsewhere classified (principal)

== ENCOUNTER → 2019-12-28 | Outpatient (CLI) | payer MEDICARE ==
--- NOTE | 2019-12-28 14:33 | REP ---
CHEST, TWO VIEWS: Two views of the chest performed and compared to a prior study of 12/08/2019. Left basilar pleuroparenchymal opacities are mildly improved. There is biapical pleural thickening unchanged. Diffusely prominent interstitium is unchanged. The heart is not enlarged. There is calcification of the thoracic aorta. Mediastinal silhouette is unchanged. There are diffuse degenerative changes of the spine. Severe compression deformity of an upper thoracic vertebral body is stable. IMPRESSION: Mild improvement of left basilar pleural and parenchymal opacities. Electronically Signed by Sen Chow MD 12/28/2019 03:33 P
== END ==
LOC: M ADAMS 13:02
PROVIDERS: ATTEND Thoracic Surgery (Cardiothoracic Vascular Surgery)
DX: J90 Pleural effusion, not elsewhere classified (principal)

== ENCOUNTER → 2020-01-11 | Outpatient (REF) | payer MEDICARE ==
[2020-01-11 11:26] LABS: HEMATOCRIT 42.9 % (36.0-47.0); MEAN CORPUSCULAR HEMOGLOBIN 31.5 pg (27.0-33.0); MEAN CORPUSCULAR HGB CONC 32.6 g/dl (32.0-36.5); MEAN CORPUSCULAR VOLUME 96.4 fl (80.0-96.0); PLATELET COUNT, AUTOMATED 224 10^3/uL (150-450); RED BLOOD COUNT 4.45 10^6/uL (4.00-5.40); WHITE BLOOD COUNT 8.1 10^3/uL (4.0-10.0)
[2020-01-11 12:12] LABS: ALBUMIN 3.9 GM/DL (3.2-5.2); ALT/SGPT 23 U/L (12-78); BILIRUBIN,TOTAL 0.5 MG/DL (0.2-1.0); BLOOD UREA NITROGEN 26 MG/DL (7-18); CALCIUM LEVEL 9.3 MG/DL (8.8-10.2); CARBON DIOXIDE LEVEL 27 MEQ/L (21-32); CHLORIDE LEVEL 107 MEQ/L (98-107); CREATININE FOR GFR 0.78 MG/DL (0.55-1.30); GLOMERULAR FILTRATION RATE > 60.0 (>32); GLUCOSE, FASTING 97 MG/DL (70-100); POTASSIUM SERUM 4.4 MEQ/L (3.5-5.1); SODIUM LEVEL 140 MEQ/L (136-145); TOTAL PROTEIN 7.6 GM/DL (6.4-8.2)
== END ==
LOC: M PLALAB 09:13
PROVIDERS: ATTEND Internal Medicine
DX: Z79.899 Other long term (current) drug therapy (principal); E78.00 Pure hypercholesterolemia, unspecified

== ENCOUNTER → 2020-02-01 | Outpatient (CLI) | payer MEDICARE ==
--- NOTE | 2020-02-01 14:40 | REP ---
CHEST TWO VIEWS: Two views of the chest are performed and compared to several priors exams, most recently 12/28/2019. Once again, there is mild improvement of left basilar pleural and parenchymal opacities. Mild residual pleural and parenchymal opacities are still present. Right apical pleural thickening is unchanged. There is no new infiltrate. There are stable chronic interstitial prominence. The heart is not enlarged. There is calcification of the thoracic aorta. Mediastinal silhouette is unchanged. There are degenerative changes of the spine with a stable severe compression deformity of an upper thoracic vertebral body. IMPRESSION: Mild residual pleural and parenchymal opacities left base have mildly improved since 12/28/2019. Electronically Signed by Sen Chow MD 02/01/2020 04:56 P
== END ==
LOC: M ADAMS 13:04
PROVIDERS: ATTEND Ophthalmology
DX: J90 Pleural effusion, not elsewhere classified (principal); I70.0 Atherosclerosis of aorta; M53.82 Other specified dorsopathies, cervical region

== ENCOUNTER → 2020-03-06 | Outpatient (CLI) | payer MEDICARE ==
--- NOTE | 2020-03-06 12:13 | REP ---
CT CHEST WITHOUT CONTRAST: HISTORY: Other nonspecific abnormal finding of the lung field. Comparison chest CT study November 11, 2019 and August 05, 2019. CT FINDINGS: Digital preliminary barista radiograph demonstrates pleuroparenchymal thickening at the left base. Cardiomegaly. Axial CT images show some pleuroparenchymal fibrosis and mild atelectatic changes in the left base involving the lingula and left lower lobe. There is improved when compared with the November 11, 2019 study. Left chest tube has been removed. No pulmonary mass or significant pulmonary nodule is appreciated. 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 There is a small quantity of fissural fluid. There is no hilar or mediastinal mass or adenopathy seen. Ectasia of the posterior aspect of the aortic arch is again seen measuring 3.7 cm in greatest transverse dimension. This is unchanged. Extensive vascular calcification is observed. A small hiatal hernia is seen. There are multiple bilateral renal cysts including a hyperdense cysts. There is some stable thickening of the adrenals. IMPRESSION: Chronic pleuroparenchymal changes left base with a tiny amount of left pleural fluid, improved from 11/11/2019. Cardiomegaly. Small hiatal hernia. Electronically Signed by Fausto Herrera MD 03/06/2020 05:02 P
== END ==
LOC: M RAD 07:08
PROVIDERS: ATTEND Internal Medicine Pulmonary Disease
DX: R91.8 Other nonspecific abnormal finding of lung field (principal)